=== PATIENT | female | born 1965 | race Caucasian/White ===

== ENCOUNTER 2020-02-27 14:36 | Emergency (ER) | payer MEDICARE ==
[~2020-02-27] VITALS: Ht 182.9 cm; Wt 88.9 kg
[~2020-02-27 14:36] MED LIST: AMARYL4 MG PO; ASPIRIN81 M2 PO; BENTYL10 MG PO; JANUVIA100 MG PO; MACROBID 100 M100 MG PO; METOPROLOL TART25 MG PO; VITAMIN D PO; Z.0.ALLOPURINOL300 M PO; Z.0.LISINOPRIL5 MG PO; Z.0.PREMARIN0.625 MG PO; Z.0.VICODIN HP TAB1 PO; ZOFRAN ODT4 MG SL
--- OUTSIDE RECORDS SUMMARY | 2020-02-27 14:40 | XMS REPORT | Continuity of Care Document ---
Author Author [facility] t Organization [facility] Address [address] [place] [address] Phone Unavailable Care Team Providers Care Cloth Drier Name Role Phone Unavailable Unavailable Payers Payer Name Policy Type Policy Number Effective Date Expiration Date S ource Problems This patient has no known problems. Allergies, Adverse Reactions, Alerts Allergy Name Allergy Type Status Severity Reaction(s) Onset Date Inacti ve Date Treating Clinician Comments Source meperidine HCl DA Active SV 2014-12-12 00:00:00 [facility] Cephalexin Monohydrate DA Active MO 2014-12-12 00:00:00 [facility] Coconut DA Active [place] 2014-12-12 00:00:00 [facility] Shellfish DA Active SV 2014-12-12 00:00:00 [facility] iodine DA Active SV 2014-12-12 00:00:00 [facility] tomato DA Active [place] 2014-12-12 00:00:00 [facility] tomato FA Active OK 2014-12-12 00:00:00 [facility] JULIO PEPPER DA Active OK 2010-11-20 00:00:00 [facility] CUCUMBER DA Active OK 2010-11-20 00:00:00 [facility] Medications This patient has no known medications. Procedures This patient has no known procedures. Results Test Description Test Time Test Comments Results Result Comments Source BREAST,BIOPSY 2020-01-10 18:15:00 RUN DATE: 01/10/20 [place] [facility] PAGE 1 RUN TIME: 1814 Specimen Inquiry RUN USER: INTERFACE PATIENT: ROLY DANIELLE LOC: [facility] U #: [id number] AGE/SX: 54/F ROOM: RE01/07/20REG DR: Mau Mcintosh MD : 65 BED: DIS: STATUS: REG REF TLOC: SPEC #: [id number] RECD: 01/08/20 STATUS: JONAH CASTILLO #: [id number] DONNIE: 01/07/20- SUBM DR: Mau Mcintosh MD ENTERED: 01/08/20 SP TYPE: BX BREAST OTHR DR: ORDERED: GROSS PROCEDURES: GROSS (01/10/20-1456) TISSUES: AXILLA, NOS - RIGHT AXILLARY MASS CLINICAL HISTORY COLLECTION DATE: 01/07/20 LARGE AXILLARY MASS, RIGHT AXILLA COMMENT Levels of the biopsy specimen show scattered lymphoid aggregates in tissue that is almost entirely necrotic. A small aggregate of more viable appearing cells is identified that raises the possibility of being a focus of tumor. Paraffin embedded tissue was submitted to [facility] for immunoperoxidase stains in an effort to identify tumor in the background necrosis. The slides are reviewed at [facility]. The controls stain appropriately. The CD45 (leukocyte common antigen) stain highlights the background of lymphocytes. Due to the patient's previous diagnosis of melanoma, markers for melanoma were performed (S100 and melan A (MART1). No reactivity for either of these stains is present. The stain for brenner-cytokeratin to exclude an epithelial neoplasm is also negative. The specimen is considered to be suboptimal due to the extensive necrosis present. Consider re-biopsy or excision of the lesion to obtain adequate tissue for diagnosis. Intradepartmental consultation: FA. The findings were discussed with Dr. Mcintosh 01/10/2020 at 3:00 PM. FINAL DIAGNOSIS Right axillary mass, core needle biopsy: NECROTIC TISSUE WITH SCATTERED LYMPHOID AGGREGATES, see comment RRB/leilani D [id number], [id number], [id number] CONTINUED ON NEXT PAGE RUN DATE: 01/10/20 [place] [facility] PAGE 2 RUN TIME: 1814 Specimen Inquiry RUN USER: INTERFACE SPEC #: [id number] PATIENT: ROLY DANIELLE #[id number] (Continued) MACROSCOPIC The specimen is received in formalin, labeled with the patient's name, date of and identified as "core needle bx". The specimen consists of multiple core biopsy fragments of pale ivan tissue with an aggregate length of 2.0 cm in diameters of up to 0.15 cm. The tissue is entirely submitted for histologic evaluation in a single cassette. GROSS PERFORMED AT [facility] [address] [place] [address] [phone])[phone] MICROSCOPIC All of the stains, including any controls performed, stain appropriately. MICROSCOPIC PERFORMED AT [facility] [address] [place] [address] [phone])[phone] PERFORMING SITE Diagnosis performed at: [facility], [address] [address] Signed SIGNATURE ON FILE Margarito Kaiser MD 01/10/20 1815 END OF REPORT - PET/CT TUMOR SK MIDTH 2019-01-28 13:59:00 FAX: Azar Brown MD [phone] [place]: St: [facility] FAX: Hakan Santos MD [phone] [facility] 1965 Age/S: 53/F [address] Unit #: [id number] Loc: [place] [address] Phys: Azar Jerome MD Acct: [id number] Dis Date: Status: REG CLI PHONE #: [phone] Exam Date: 01/28/2019929 FAX #: [phone] Reason: MELANOMA EXAMS: CPT CODE: [id number] PET/CT TUMOR SK MIDTH 14795 HISTORY: Staging malignant melanoma. COMPARISON: None available. PET/CT SCAN: 11.7 mCi of FDG administered. Images obtained from the skull base to the feet 1 hour postinjection. Blood glucose level = 192 mg/dL. HEAD AND NECK: Intense uptake within the brain parenchyma limits evaluation. Physiologic pharyngeal uptake. CHEST: No lung parenchymal uptake. No chest wall or breast uptake. No pathologic hilar, mediastinal or axillary adenopathy or uptake. ABDOMEN: No abnormal liver or splenic uptake. No pancreatic or adrenal or renal uptake. Excretion from both kidneys. No pathologic mesenteric, retroperitoneal or retrocrural adenopathy or uptake. Mild excretion into the bowel. PELVIS: Excretion into the urinary bladder distended normally into the bowel as well. No pelvic pathologic adenopathy or uptake. MUSCULOSKELETAL: No abnormal uptake to suggest metastases. LEGS: No abnormal uptake. IMPRESSION: No evidence of metastatic disease. at 1359 Reported and signed by: Shahab Littlejohn M.D. CC: Azar Jerome M.D.; Hakan Chavez MD Technologist: Rony Ramon [facility] Trnscrd Date/Time/By: 01/28/2019 (5049) : By: [email or web address] Orig Print D/T: S: 01/28/2019 (0861) PAGE 1 Signed Report
--- NOTE | 2020-02-27 16:42 | Emergency Department Note ---
History of Present Illnes History of Present Illness Chief Complaint: General Medicine Complaints History of Present Illness This is a 54 year old female PATIENT IN FROM HOME WITH COMPLAINTS OF HITTING HER RIGHT ELBOW AGAINST THE DOORKNOB AND CAUSING IT TO BLEED; PATIENT DENIES PAIN. 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 Any updates have been documented here. Past Medical History Recent Fever: No Clinical Suspicion of Infectio: No New/Unexplained Change in Ment: No Past Medical History: Diabetes Other Medical History: BLIND GOUT MELANOMA Other Surgery: LEFT KNEE L HIP REPLACEMENT BACK L ARM Social History Smoking Cessation: Never Smoker Counseling Performed: No Alcohol Use: None Any Illegal Drug Use: No TB Exposure/Symptoms: No Physically hurt or threatened: No Other Last Tetanus: UTD Any Pre-Existing Lines (PICC,: No Is patient up to date on immun: Yes Last Flu: OOD Last Pneumovax: NA Review of Systems Review of Systems Constitutional: Reports no symptoms EENTM: Reports no symptoms Cardiovascular: Reports no symptoms Respiratory: Reports no symptoms Gastrointestinal: Reports no symptoms Genitourinary: Reports no symptoms Musculoskeletal: Reports other (bleeding from right elbow) Integumentary: Reports no symptoms Neurological: Reports no symptoms Psychological: Reports no symptoms Endocrine: Reports no symptoms Hematological/Lymphatic: Reports no symptoms Physical Exam Related Data Allergies: Coded Allergies: tomato (Verified Allergy, Intermediate, rash, 10/09/13) Cephalexin Monohydrate (Verified Allergy, Mild, RASH, 05/28/12) meperidine HCl (Verified Allergy, Mild, MOUTH/TONGUE NUMBNESS, 05/28/12) iodine (Verified Allergy, Unknown, 04/09/19) pioglitazone (Verified Allergy, Unknown, 04/09/19) shellfish derived (Unverified Allergy, Unknown, 08/05/16) Uncoded Allergies: coconut (Allergy, Intermediate, Rash, 10/09/13) cucumber (Allergy, Intermediate, Rash, 10/09/13) JULIO PEPPERS (Allergy, Unknown, 08/05/16) Triage Vital Signs Vital Signs Date Time Temp Pulse Resp B/P (MAP) Pulse Ox O2 Delivery O2 Flow Rate FiO2 02/27/20 14:46 99.1 105 18 134/83 97 Physical Exam CONSTITUTIONAL Constitutional: Reports well-developed, Reports well-nourished HENT HENT: Reports normocephalic, Reports atraumatic, Reports oropharynx c lear/moist, Reports nose normal HENT L/R: Reports left ext ear normal, Reports right ext ear normal EYES Eyes: Reports PERRL, Reports conjunctivae normal NECK Neck: Reports ROM normal PULMONARY Pulmonary: Reports effort normal, Reports breath sounds normal CARDIOVASCULAR Cardiovascular: Reports regular rhythm, Reports heart sounds normal, Reports capillary refill normal, Reports normal rate GASTROINTESTINAL Abdominal: Reports soft, Reports nontender, Reports bowel sounds normal GENITOURINARY Genitourinary: Reports exam deferred SKIN Skin: Reports other (spongy mass on right elbow with incr vascularity, no active bleeding) MUSCULOSKELETAL Musculoskeletal: Reports other (large right axillary mass, mildly tender) NEUROLOGICAL Neurological: Reports alert, Reports oriented x 3, Reports no gross motor or sensory deficits PSYCHOLOGICAL Psychological: Reports mood/affect normal, Reports judgement normal Assessment & Plan Medical Decision Making MDM no labs needed, no active bleeding - right elbow dressing applied with firm wrap Reassessment Reassessment dc home, f/u with her senior administrative support tomorrow Assessment & Plan Final Impression: (1) Melanoma Depart Disposition: HOME, SELF-CARE Last Vital Signs Date Time Temp Pulse Resp B/P (MAP) Pulse Ox O2 Delivery O2 Flow Rate FiO2 02/27/20 14:46 99.1 105 18 134/83 97 Home Meds Reported Medications Glimepiride (AMARYL) 4 Mg Tablet, 4 MG PO BID 10/08/13 Lisinopril (Lisinopril) 5 Mg Tablet, 5 MG PO DAILY 05/31/12 Allopurinol (Allopurinol) 300 Mg Tablet, 300 MG PO DAILY 05/31/12 Estrogens,Conjugated (Premarin) 0.625 Mg Tablet, 0.625 MG PO DAILY 05/31/12 SUSAN RIVERA MD Feb 27, 2020 16:42
[2020-02-28] MEDS ORDERED: PREMARIN0.3 MG PO (02:26)
== END 2020-02-27 15:40 | disposition home or self-care (01) ==
LOC: ER 14:36
DX: S50.01XA Contusion of right elbow, initial encounter (principal); W22.09XA Striking against other stationary object, initial encounter; Y92.008 Other place in unspecified non-institutional (private) residence as the place of occurrence of the external cause; C43.61 Malignant melanoma of right upper limb, including shoulder; E11.9 Type 2 diabetes mellitus without complications; Z96.642 Presence of left artificial hip joint
CPT/HCPCS: 99282

== ENCOUNTER 2020-02-27 20:04 | Inpatient (IN) | payer MEDICARE ==
[~2020-02-27] VITALS: Ht 182.9 cm; Wt 88.5 kg
--- OUTSIDE RECORDS SUMMARY | 2020-02-27 20:09 | XMS REPORT | Continuity of Care Document ---
Author Author [facility] t Organization [facility] Address [address] [place] [address] Phone Unavailable Care Team Providers Care Billet Examiner Name Role Phone MD ESVIN RAYNESFORD PCP Payers Payer Name Policy Type Policy Number Effective Date Expiration Date Danii Cason [facility] [id number] 2019 00:00:00 [facility] Problems Condition Name Condition Details Condition Category Status Onset Date Resolution Date Last Treatment Date Treating Clinician Comments Source Weakness Problem Active [facility] Uncontrolled diabetes mellitus Problem Active [facility] Morbid obesity Problem Active [facility] Renal failure Problem Active [facility] Hyperkalemia Problem Active [facility] Pancreatitis Problem Active [facility] Malignant melanoma Problem Active [facility] Allergies, Adverse Reactions, Alerts Allergy Name Allergy Type Status Severity Reaction(s) Onset Date Inacti ve Date Treating Clinician Comments Source Iodine Allergy to substance Active 2019-04-09 00:00:00 [facility] Pioglitazone Allergy to substance Active 2019-04-09 00:00:0 0 [facility] shellfish derived Allergy to substance Active 2016-08-05 00 :00:00 [facility] JULIO PEPPERS Allergy to substance Active 2016-08-05 00:00:0 0 [facility] meperidine HCl DA Active SV 2014-12-12 00:00:00 [facility] Cephalexin Monohydrate DA Active MO 2014-12-12 00:00:00 [facility] Coconut DA Active AL 2014-12-12 00:00:00 [facility] Shellfish DA Active SV 2014-12-12 00:00:00 [facility] iodine DA Active SV 2014-12-12 00:00:00 [facility] tomato DA Active AL 2014-12-12 00:00:00 [facility] tomato FA Active AL 2014-12-12 00:00:00 [facility] Tomato Allergy to substance Active Moderate rash 2013-10-09 00:00:00 [facility] coconut Allergy to substance Active Moderate Rash 2013-10-09 00:00:00 [facility] cucumber Allergy to substance Active Moderate Rash 2013-10-09 00:00:00 [facility] meperidine HCl Allergy to substance Active Mild MOUTH/TONGU E NUMBNESS 2012-05-28 00:00:00 [facility] Cephalexin Monohydrate Allergy to substance Active Mild MARIA GUADALUPE H 2012-05-28 00:00:00 [facility] JULIO PEPPER DA Active AL 2010-11-20 00:00:00 [facility] CUCUMBER DA Active AL 2010-11-20 00:00:00 [facility] Social History Social Habit Start Date Stop Date Quantity Comments Source Sex Assigned At 1965 00:00:00 1965 00:00:00 Female [facility] Medications Ordered Medication Name Filled Medication Name Start Date Stop Da te Current Medication? Ordering Clinician Indication Dosage Frequency Signature (SIG) Comments Components Source Allopurinol Allopurinol Yes 300 Daily [facility] Estrogens,Conjugated (Premarin) 0.625 Mg TABLET Estrog ens,Conjugated (Premarin) 0.625 Mg TABLET Yes .625 Daily [facility] Glimepiride (Amaryl) 4 Mg TABLET Glimepiride (Amaryl) 4 Mg TABLET Yes 4 Twice A Day [facility] Lisinopril Lisinopril Yes 5 Daily [facility] Metoprolol Tartrate Metoprolol Tartrate 2019-04-09 00:00:00 No 12.5 Daily [facility] Nitrofurantoin Monohyd/M-Cryst (Macrobid 100 Mg Capsul e) 100 Mg CAPSULE Nitrofurantoin Monohyd/M-Cryst (Macrobid 100 Mg Capsule) 100 Mg CAPSULE 2019-04-09 00:00:00 No 100 Q.mwf [facility] Sitagliptin Phosphate (Januvia) 100 Mg TABLET Sitaglip tin Phosphate (Januvia) 100 Mg TABLET 2019-04-09 00:00:00 No 100 Daily [facility] Dicyclomine Hcl (Bentyl) 10 Mg CAPSULE Dicyclomine Hcl (Bentyl) 10 Mg CAPSULE 2016-08-07 00:00:00 No 20 Every 6 Hours as nee ded for Abdominal Pain [facility] Ondansetron (Zofran Odt) 4 Mg TAB.RAPDIS Ondansetron ( Zofran Odt) 4 Mg TAB.RAPDIS 2016-08-07 00:00:00 No 4 E very 6 Hours as needed for Nausea [facility] Aspirin Aspirin 2015-05-06 00:00:00 No 81 Daily [facility] Vitamin D Vitamin D 2015-05-06 00:00:00 No 650 Daily [facility] Hydrocodone Bit/Acetaminophen (Vicodin Hp Tablet) 1 Ea ch TABLET Hydrocodone Bit/Acetaminophen (Vicodin Hp Tablet) 1 Each TABLET 2014-10-26 00:0 0:00 No 1 as needed [facility] Vital Signs Vital Name Observation Time Observation Value Comments Source Weight 2020-02-27 14:46:00 196 [lb_av] [facility] BMI (Body Mass Index) 2020-02-27 14:46:00 26.6 kg/m2 [facility] Procedures This patient has no known procedures. Plan of Care Planned Activity Planned Date Details Comments Source Instructions Wound Care (General) [facility] Encounters Start Date/Time End Date/Time Encounter Type Admission Type [facility] Care Department Encounter ID Source 2020-02-27 14:36:00 2020-02-27 14:36:00 Registered Emergency Room [facility] [id number] [facility] Results Test Description Test Time Test Comments Results Result Comments Source BREAST,BIOPSY 2020-01-10 18:15:00 RUN DATE: 01/10/20 [facility] PAGE 1 RUN TIME: 5 Specimen Inquiry RUN USER: INTERFACE PATIENT: ROLY DANIELLE LOC: [place] U #: [id number] AGE/SX: 54/F ROOM: RE01/07/20REG DR: Mau Mcintosh MD : 65 BED: DIS: STATUS: REG REF TLOC: SPEC #: [id number] RECD: 01/08/20 STATUS: JONAH CASTILLO #: [id number] DONNIE: 01/07/20- SUBM DR: Mau Mcintosh MD ENTERED: 01/08/20 SP TYPE: BX BREAST OTHR DR: ORDERED: GROSS PROCEDURES: GROSS (01/10/20-1455) TISSUES: AXILLA, NOS - RIGHT AXILLARY MASS CLINICAL HISTORY COLLECTION DATE: 01/07/20 LARGE AXILLARY MASS, RIGHT AXILLA COMMENT Levels of the biopsy specimen show scattered lymphoid aggregates in tissue that is almost entirely necrotic. A small aggregate of more viable appearing cells is identified that raises the possibility of being a focus of tumor. Paraffin embedded tissue was submitted to [facility] for immunoperoxidase stains in an effort to identify tumor in the background necrosis. The slides are reviewed at [facility]. The controls stain appropriately. The CD45 (leukocyte [...] SCATTERED LYMPHOID AGGREGATES, see comment RRB/leilani D [id number], [id number], [id number] CONTINUED ON NEXT PAGE RUN DATE: 01/10/20 [facility] PAGE 2 RUN TIME: 1814 Specimen Inquiry RUN USER: INTERFACE SPEC #: [id number] PATIENT: ROLY DANIELLE #[id number] (Continued) MACROSCOPIC The specimen is received in formalin, labeled with the patient's name, date of and identified as "core needle bx". The specimen consists of multiple core biopsy fragments of pale ivan tissue with an aggregate length of 2.0 cm in diameters of up to 0.15 cm. The tissue is entirely submitted for histologic evaluation in a single cassette. GROSS PERFORMED AT [facility] [address] [place] [address] [phone] MICROSCOPIC All of the stains, including any controls performed, stain appropriately. MICROSCOPIC PERFORMED AT [facility] [address] [place] [address] [phone] PERFORMING SITE Diagnosis performed at: [facility], [place] [address] [id number] Signed SIGNATURE ON FILE Margarito Kaiser MD 01/10/20 1815 END OF REPORT - PET/CT TUMOR SK BS MIDTH 2019-01-28 13:59:00 FAX: Azar Brown MD [phone] [place]: St: [facility] FAX: Hakan Santos MD [phone] Name: ROLY DANIELLE [facility] : 1965 Age/S: 53/F [address] [facility] Unit #: [id number] Loc: [place] [address] Phys: Azar Jerome MD Acct: [id number] Dis Date: Status: REG CL PHONE #: [phone] Exam Date: 01/28/2019 09 FAX #: [phone] Reason: MELANOMA EXAMS: CPT CODE: [id number] PET/CT TUMOR SK MIDTH 32406 HISTORY: Staging malignant melanoma. COMPARISON: None available. PET/CT SCAN: 11.7 mCi of FDG administered. Images obtained from the skull base to the feet 1 hour postinjection. Blood glucose level = 192 mg/dL. HEAD AND NECK: Intense uptake within the brain pare nchyma limits evaluation. Physiologic pharyngeal uptake. CHEST: No [...] IMPRESSION: No evidence of metastatic disease. at 3958 Reported and signed by: Shahab Littlejohn M.D. CC: Azar Jerome M.D.; Hakan Chavez MD Technologist: Rony Ramon Trnscrd Date/Time/By: 01/28/2019 (8624) : By: [email or web address] Orig Print D/T: S: 01/28/2019 (6738) PAGE 1 Signed Report
[2020-02-27] MEDS ORDERED: LEVOFLOXACIN 500MG/D5W 100ML 100 ML IV ONE (21:30)
--- NOTE | 2020-02-27 21:33 | Emergency Department Note ---
History of Present Illnes History of Present Illness Chief Complaint: Laceration History of Present Illness This is a 54 year old female presents by way of EMS complaining of ble eding from right elbow. The patient reports she hit her elbow on a door this morning and began to bleed. Patient was seen in this ER earlier today for same. At time of evaluation today by another ER physician it was not bleeding it was wrapped up and patient was discharged home. States it began bleeding and after going home. Patient reports the site this bleeding is where she had a melanoma removed approximately a year ago. . 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 Any updates have been documented here. Past Medical History Recent Fever: No Clinical Suspicion of Infectio: No New/Unexplained Change in Ment: No Past Medical History: Diabetes, Cancer Other Medical History: BLIND GOUT MELANOMA Other Surgery: LEFT KNEE L HIP REPLACEMENT BACK L ARM RT ARM MELANOMA REMOVAL 2018 Social History Smoking Cessation: Never Smoker Alcohol Use: Social Family History Family history of heart diseas: No Other family history htn,dm Other Last Tetanus: UTD Review of Systems Review of Systems Constitutional: Reports no symptoms EENTM: Reports no symptoms Cardiovascular: Reports no symptoms Respiratory: Reports no symptoms Gastrointestinal: Reports no symptoms Genitourinary: Reports no symptoms Musculoskeletal: Reports as per HPI Integumentary: Reports no symptoms Neurological: Reports no symptoms Psychological: Reports no symptoms Endocrine: Reports no symptoms Hematological/Lymphatic: Reports no symptoms Physical Exam Related Data Allergies: Coded Allergies: tomato (Verified Allergy, Intermediate, rash, 10/09/13) Cephalexin Monohydrate (Verified Allergy, Mild, RASH, 05/28/12) meperidine HCl (Verified Allergy, Mild, MOUTH/TONGUE NUMBNESS, 05/28/12) iodine (Verified Allergy, Unknown, 04/09/19) pioglitazone (Verified Allergy, Unknown, 04/09/19) shellfish derived (Unverified Allergy, Unknown, 08/05/16) Uncoded Allergies: coconut (Allergy, Intermediate, Rash, 10/09/13) cucumber (Allergy, Intermediate, Rash, 10/09/13) JULIO PEPPERS (Allergy, Unknown, 08/05/16) Triage Vital Signs Vital Signs Date Time Temp Pulse Resp B/P (MAP) Pulse Ox O2 Delivery O2 Flow Rate FiO2 02/27/20 20:54 99.7 113 20 154/102 97 Vital signs reviewed: Yes Physical Exam CONSTITUTIONAL Constitutional: Reports well-developed, Reports well-nourished HENT HENT: Reports normocephalic, Reports atraumatic, Reports oropharynx clear/moist, Reports nose normal HENT L/R: Reports left ext ear normal, Reports right ext ear normal EYES Eyes: Reports PERRL, Reports conjunctivae normal NECK Neck: Reports ROM normal PULMONARY Pulmonary: Reports effort normal, Reports breath sounds normal CARDIOVASCULAR Cardiovascular: Reports regular rhythm, Reports heart sounds normal, Reports capillary refill normal, Reports tachycardia (rate 106) GASTROINTESTINAL Abdominal: Reports soft, Reports nontender, Reports bowel sounds normal GENITOURINARY Genitourinary: Reports exam deferred SKIN Skin: Reports warm, Reports dry, Reports other (swollen area right lateral aspect of elbow with minimal bleeding) MUSCULOSKELETAL Musculoskeletal: Reports ROM normal NEUROLOGICAL Neurological: Reports alert, Reports oriented x 3, Reports no gross motor or sensory deficits PSYCHOLOGICAL Psychological: Reports mood/affect normal, Reports judgement normal Exam - additional comments on further exam of area that is bleeding on right elbow when i went to express what appeared to be a hematoma purulent material drained from site, no erythema note to skin in same area, pt states this is where the melanoma was removed from her arm 1 year ago Results Laboratory Laboratory Laboratory Tests Test 02/27/20 22:57 02/27/20 21:03 White Blood Count 15.61 x10e3/uL (4.8-10.8) Red Blood Count 4.58 x10e6/uL (3.6-5.1) Hemoglobin 12.7 g/dL (12.0-16.0) Hematocrit 39.8 % (34.2-44.1) Mean Corpuscular Volume 86.9 fL (81-99) Mean Corpuscular Hemoglobin 27.7 pg (28-32) Mean Corpuscular Hemoglobin Concent 31.9 g/dL (31-35) Red Cell Distribution Width 14.1 % (11.7-14.4) Platelet Count 363 x10e3/uL (140-360) Neutrophils (%) (Auto) 85.9 % (38.7-80.0) Lymphocytes (%) (Auto) 9.3 % (18.0-39.1) Monocytes (%) (Auto) 3.2 % (4.4-11.3) Eosinophils (%) (Auto) 0.3 % (0.0-6.0) Basophils (%) (Auto) 0.4 % (0.0-1.0) Neutrophils # (Auto) 13.4 (2.1-6.9) Lymphocytes # (Auto) 1.5 (1.0-3.2) Monocytes # (Auto) 0.5 (0.2-0.8) Eosinophils # (Auto) 0.1 (0.0-0.4) Basophils # (Auto) 0.1 (0.0-0.1) Absolute Immature Granulocyte (auto 0.14 x10e3/uL (0-0.1) Sodium Level 134 mmol/L (136-145) Potassium Level 5.7 mmol/L (3.5-5.1) Chloride Level 102 mmol/L (98-107) Carbon Dioxide Level 19 mmol/L (22-29) Anion Gap 18.7 mmol/L (8-16) Blood Urea Nitrogen 39 mg/dL (7-26) Creatinine 2.66 mg/dL (0.57-1.11) Estimat Glomerular Filtration Rate 19 ML/MIN (60-) BUN/Creatinine Ratio 15 (6-25) Glucose Level 325 mg/dL (74-118) Calcium Level 10.6 mg/dL (8.4-10.2) Total Bilirubin 0.4 mg/dL (0.2-1.2) Aspartate Amino Transf (AST/SGOT) 14 IU/L (5-34) Alanine Aminotransferase (ALT/SGPT) 10 IU/L (0-55) Alkaline Phosphatase 110 IU/L (40-150) Total Protein 7.3 g/dL (6.5-8.1) Albumin 3.2 g/dL (3.5-5.0) Globulin 4.1 g/dL (2.3-3.5) Albumin/Globulin Ratio 0.8 (0.8-2.0) Bedside Glucose 268 mg/dL (70-120) Laboratory Tests Test 02/27/20 21:03 Bedside Glucose 268 mg/dL (70-120) Lab results reviewed: Yes Laboratory comments PT WITH HYPERKALEMIA, Procedures 12 Lead ECG Interpretation ECG Interpretation : ECG: ECG 1 Date: Feb 28, 2020 Time: 23:56 Rhythm: sinus rhythm Rate: normal BPM: 95 QRS axis: normal ST segments normal: Yes T waves normal: No T wave inversion: V5, V6 Other findings: no other findings Clinical Impression: abnormal ECG Assessment & Plan Medical Decision Making MDM pt with swollen area to right elbow with purulent drainage and this is at site of previous melanoma removal, i spoke with dr bond pt's pcp, will place pt in obs, get ct of elbow, start pt on levaquin and vancomycin. cbc, cmp, blood cultures ordered. 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 I SPOKE WITH DR MG . Assessment & Plan Final Impression: (1) Abscess of right elbow (2) Hyperkalemia (3) Renal insufficiency Depart Disposition: ADMITTED Last Vital Signs Date Time Temp Pulse Resp B/P (MAP) Pulse Ox O2 Delivery O2 Flow Rate FiO2 02/27/20 20:54 99.7 113 20 154/102 97 Home Meds Reported Medications Glimepiride (AMARYL) 4 Mg Tablet, 4 MG PO BID 10/08/13 Lisinopril (Lisinopril) 5 Mg Tablet, 5 MG PO DAILY 05/31/12 Allopurinol (Allopurinol) 300 Mg Tablet, 300 MG PO DAILY 05/31/12 Estrogens,Conjugated (Premarin) 0.625 Mg Tablet, 0.625 MG PO DAILY 05/31/12 Medications in the ED Levofloxacin/ Dextrose 100 ml @ 100 mls/hr NOW ONCE IV ; Start 02/27/20 at 21:30; Stop 02/27/20 at 22:29; Status UNV Vancomycin HCl 250 ml @ 200 mls/hr NOW ONCE IV ; Start 02/27/20 at 21:30; Stop 02/27/20 at 22:44; Status UNV PURNIMA HDZ MD Feb 27, 2020 21:33
[2020-02-27] MEDS ORDERED: VANCOMYCIN 1GM/NS 250 ML 250 ML IV ONE (22:00)
[2020-02-27 23:20] LABS: BASOPHILS # (AUTO) 0.1 (0.0-0.1); BASOPHILS % 0.4 % (0.0-1.0); EOSINOPHILS # (AUTO) 0.1 (0.0-0.4); EOSINOPHILS % 0.3 % (0.0-6.0); HEMATOCRIT 39.8 % (34.2-44.1); HEMOGLOBIN 12.7 g/dL (12.0-16.0); LYMPHOCYTES # (AUTO) 1.5 (1.0-3.2); LYMPHOCYTES % 9.3 % (18.0-39.1); MEAN CORPUSCULAR HEMOGLOBIN 27.7 pg (28-32); MEAN CORPUSCULAR HGB CONC 31.9 g/dL (31-35); MEAN CORPUSCULAR VOLUME 86.9 fL (81-99); MONOCYTES # (AUTO) 0.5 (0.2-0.8); MONOCYTES % 3.2 % (4.4-11.3); NEUTROPHILS # (AUTO) 13.4 (2.1-6.9); NEUTROPHILS % 85.9 % (38.7-80.0); PLATELET COUNT 363 x10e3/uL (140-360); RED BLOOD COUNT 4.58 x10e6/uL (3.6-5.1); RED CELL DISTRIBUTION WIDTH 14.1 % (11.7-14.4)
[2020-02-27 23:33] LABS: ALBUMIN 3.2 g/dL (3.5-5.0); ALBUMIN/GLOBULIN RATIO 0.8 (0.8-2.0); ANION GAP 18.7 mmol/L (8-16); CALCIUM 10.6 mg/dL (8.4-10.2); CREATININE, SERUM 2.66 mg/dL (0.57-1.11); POTASSIUM 5.7 mmol/L (3.5-5.1)
--- OUTSIDE RECORDS SUMMARY | 2020-02-27 23:59 | XMS REPORT | Continuity of Care Document ---
Author Author [facility] t Organization [facility] Address [address] [place] [address] Phone Unavailable Care Team Providers Care Patent Lawyer Name Role Phone MD ESVIN LONGWOOD PCP Payers Payer Name Policy Type Policy Number Effective Date Expiration Date Danii Cason [facility] [id number] 2019 00:00:00 [facility] Problems Condition Name Condition Details Condition Category Status Onset Date Resolution Date Last Treatment Date Treating Clinician Comments Source Weakness Problem Active [facility] Uncontrolled diabetes mellitus Problem Active [facility] Morbid obesity Problem Active C [facility] Renal failure Problem Active [facility] I [facility] Hyperkalemia Problem Active [facility] Pancreatitis Problem Active [facility] Malignant melanoma Problem Active [facility] Allergies, Adverse Reactions, Alerts Allergy Name Allergy Type Status Severity Reaction(s) Onset Date Inacti ve Date Treating Clinician Comments Source Iodine Allergy to substance Active 2019-04-09 00:00:00 [facility] Pioglitazone Allergy to substance Active 2019-04-09 00:00:0 0 [facility] shellfish derived Allergy to substance Active 2016-08-05 00 :00:00 [facility] JULIO PEPPERS Allergy to substance Active 2016-08-05 00:00:0 0 [facility] meperidine HCl DA Active [place] 2014-12-12 00:00:00 [facility] Cephalexin Monohydrate DA Active [place] 2014-12-12 00:00:00 [facility] Coconut DA Active [place] 2014-12-12 00:00:00 [facility] Shellfish DA Active [place] 2014-12-12 00:00:00 [facility] iodine DA Active [place] 2014-12-12 00:00:00 [facility] tomato DA Active [place] 2014-12-12 00:00:00 [facility] tomato FA Active [place] 2014-12-12 00:00:00 [facility] Tomato Allergy to substance Active Moderate rash 2013-10-09 00:00:00 [facility] coconut Allergy to substance Active Moderate Rash 2013-10-09 00:00:00 [facility] cucumber Allergy to substance Active Moderate Rash 2013-10-09 00:00:00 [facility] meperidine HCl Allergy to substance Active Mild MOUTH/TONGU E NUMBNESS 2012-05-28 00:00:00 [facility] Cephalexin Monohydrate Allergy to substance Active Mild MARIA GUADALUPE H 2012-05-28 00:00:00 [facility] JULIO PEPPER DA Active [place] 2010-11-20 00:00:00 [facility] CUCUMBER DA Active [place] 2010-11-20 00:00:00 [facility] Social History Social Habit Start Date Stop Date Quantity Comments Source Sex Assigned At 1965 00:00:00 1965 00:00:00 Female [facility] Medications Ordered Medication Name Filled Medication Name Start Date Stop Da te Current Medication? Ordering Clinician Indication Dosage Frequency Signature (SIG) Comments Components Source Allopurinol Allopurinol Yes 300 Daily [facility] Estrogens,Conjugated (Premarin) 0.625 Mg TABLET Estrog ens,Conjugated (Premarin) 0.625 Mg TABLET Yes .625 Daily [facility] Glimepiride (Amaryl) 4 Mg TABLET Glimepiride (Amaryl) 4 Mg TABLET Yes 4 Twice A Day [facility] Lisinopril Lisinopril Yes 5 Daily [facility] I [facility] Metoprolol Tartrate Metoprolol Tartrate 2019-04-09 00:00:00 No 12.5 Daily [facility] Nitrofurantoin Monohyd/M-Cryst (Macrobid 100 Mg Capsul e) 100 Mg CAPSULE Nitrofurantoin Monohyd/M-Cryst (Macrobid 100 Mg Capsule) 100 Mg CAPSULE 2019-04-09 00:00:00 No 100 Q.mwf [facility] Sitagliptin Phosphate (Januvia) 100 Mg TABLET Sitaglip tin Phosphate (Januvia) 100 Mg TABLET 2019-04-09 00:00:00 No 100 Daily [facility] Dicyclomine Hcl (Bentyl) 10 Mg CAPSULE Dicyclomine Hcl (Bentyl) 10 Mg CAPSULE 2016-08-07 00:00:00 No 20 Every 6 Hours as nee ded for Abdominal Pain [facility] Ondansetron (Zofran Odt) 4 Mg TAB.RAPDIS Ondansetron ( Zofran Odt) 4 Mg TAB.RAPDIS 2016-08-07 00:00:00 No 4 E very 6 Hours as needed for Nausea [facility] Aspirin Aspirin 2015-05-06 00:00:00 No 81 Daily [facility] Vitamin D Vitamin D 2015-05-06 00:00:00 No 650 Daily [facility] Hydrocodone Bit/Acetaminophen (Vicodin Hp Tablet) 1 Ea ch TABLET Hydrocodone Bit/Acetaminophen (Vicodin Hp Tablet) 1 Each TABLET 2014-10-26 00:0 0:00 No 1 as needed [facility] Vital Signs Vital Name Observation Time Observation Value Comments Source Weight 2020-02-27 14:46:00 196 [lb_av] [facility] BMI (Body Mass Index) 2020-02-27 14:46:00 26.6 kg/m2 [facility] Procedures This patient has no known procedures. Plan of Care Planned Activity Planned Date Details Comments Source Instructions Wound Care (General) [facility] Encounters Start Date/Time End Date/Time Encounter Type Admission Type [facility] Care Department Encounter ID Source 2020-02-27 14:36:00 2020-02-27 14:36:00 Registered Emergency Room [facility] [id number] [facility] Results Test Description Test Time Test Comments Results Result Comments Source BREAST,BIOPSY 2020-01-10 18:15:00 RUN DATE: 01/10/20 [facility] PAGE 1 RUN TIME: 5 Specimen Inquiry RUN USER: INTERFACE PATIENT: ROLY DANIELLE LOC: [employer] U #: [id number] AGE/SX: 54/F ROOM: RE01/07/20REG DR: Mau Mcintosh MD : 65 BED: DIS: STATUS: REG REF TLOC: SPEC #: [id number] RECD: 01/08/20 STATUS: JONAH CASTILLO #: [id number] DONNIE: 01/07/20- SUBM DR: Mau Mcintosh MD [...] tumor. Paraffin embedded tissue was submitted to [facility] for immunoperoxidase stains in an effort to identify tumor in the background necrosis. The slides are reviewed at [facility]. The controls stain appropriately. The CD45 [...] SCATTERED LYMPHOID AGGREGATES, see comment RRB/leilani D 89547, 90045, [id number] CONTINUED ON NEXT PAGE RUN DATE: 01/10/20 [facility] PAGE 2 RUN TIME: 1814 Specimen Inquiry RUN USER: INTERFACE SPEC #: [id number] PATIENT: ROLY DANIELLE #[id number] (Continued) MACROSCOPIC The specimen is received in formalin, labeled with the patient's name, date of and identified as "core needle bx". The specimen consists of multiple core biopsy fragments of pale ivan tissue with an aggregate length of 2.0 cm in diameters of up to 0.15 cm. The tissue is entirely submitted for histologic evaluation in a single cassette. GROSS PERFORMED AT [facility] [address] [place] [address] (p)[phone] MICROSCOPIC All of the stains, including any controls performed, stain appropriately. MICROSCOPIC PERFORMED AT [facility] [address] [place] [address] (p)[phone] PERFORMING SITE Diagnosis performed at: [facility], [place] [address] [id number] Signed SIGNATURE ON FILE Margarito Kaiser MD 01/10/20 1815 END OF REPORT - PET/CT TUMOR SK BS MIDTH 2019-01-28 13:59:00 FAX: Azar Brown MD [phone] [place]: St: [facility] FAX: Hakan Santos MD [phone] Name: ROLY DANIELLE KAMALA [facility] : 1965 Age/S: 53/F [address] [facility] Unit #: [id number] Loc: [place] [address] Phys: Azar Jerome MD Acct: [id number] Dis Date: Status: REG CL PHONE #: [phone] Exam Date: 01/28/2019 09 FAX #: [phone] Reason: MELANOMA EXAMS: CPT CODE: [id number] PET/CT TUMOR SK MIDTH [id number] HISTORY: Staging malignant melanoma. COMPARISON: None available. [...] IMPRESSION: No evidence of metastatic disease. at 7132 Reported and signed by: Shahab Littlejohn M.D. CC: Azar Jerome M.D.; Hakan Chavez MD Technologist: Rony Ramon Trnscrd Date/Time/By: 01/28/2019 (1813) : By: [email or web address] Orig Print D/T: S: 01/28/2019 (1650) PAGE 1 Signed Report
[2020-02-28] MEDS ORDERED: ONDANSETRON HCL INJ 2MG/ML 2ML 2 MG/ML VIAL IV PRN
[2020-02-28] MEDS ORDERED: DEXTROSE 50% SYRINGE 50 ML IV STA (00:01)
[2020-02-28] MEDS ORDERED: SODIUM BICARBONATE 8.4% 50 ML VIAL IV STA ×2 (00:01→00:28)
[2020-02-28] MEDS ORDERED: CALCIUM CHLORIDE 10% 1.36 MEQ/ML 10ML SYR IV STA (00:01)
[2020-02-28] MEDS ORDERED: INSULIN REGULAR, HUMAN 100 UNIT/1 ML 3ML VIAL IV ONE (00:15)
[2020-02-28] MEDS ORDERED: CALCIUM GLUCONATE 10% INJ 4.65 MEQ in SODIUM CHLORIDE 0.9% 50ML 50 ML IV ONE (00:15)
[2020-02-28] MEDS ORDERED: SOD POLYSTYRENE SULFONATE SUSP 15 GM/60 ML BTL PO ONE (00:15)
[2020-02-28] MEDS ORDERED: SODIUM CHLORIDE 0.9% 50ML 50 ML ONE (00:29)
[2020-02-28] MEDS ORDERED: CALCIUM GLUCONATE 10% INJ 0.465 MEQ/ML VIAL ONE (00:29)
[2020-02-28] MEDS ORDERED: DEXTROSE 50% SYRINGE 50 ML IV PRN (01:30)
[2020-02-28] MEDS ORDERED: SODIUM BICARBONATE 8.4% SYRING 50 ML ONE (01:32)
--- NOTE | 2020-02-28 02:08 | NUR ---
Patient resting with no distress noted at this time. RR even and unlabored. Call light remains at bedside.
[2020-02-28] MEDS ORDERED: PREMARIN0.3 MG PO (02:26)
--- NOTE | 2020-02-28 04:30 | NUR ---
Patient had 2 bowel movements. Brief applied. Patient in no distress. RR even and unlabored. Will continue to monitor patient.
[2020-02-28 04:49] LABS: BASOPHILS # (AUTO) 0.1 (0.0-0.1); BASOPHILS % 0.6 % (0.0-1.0); EOSINOPHILS # (AUTO) 0.1 (0.0-0.4); EOSINOPHILS % 0.3 % (0.0-6.0); HEMATOCRIT 37.5 % (34.2-44.1); HEMOGLOBIN 12.2 g/dL (12.0-16.0); LYMPHOCYTES # (AUTO) 1.8 (1.0-3.2); LYMPHOCYTES % 11.9 % (18.0-39.1); MEAN CORPUSCULAR HEMOGLOBIN 28.2 pg (28-32); MEAN CORPUSCULAR HGB CONC 32.5 g/dL (31-35); MEAN CORPUSCULAR VOLUME 86.6 fL (81-99); MONOCYTES # (AUTO) 0.7 (0.2-0.8); MONOCYTES % 4.8 % (4.4-11.3); NEUTROPHILS # (AUTO) 12.1 (2.1-6.9); NEUTROPHILS % 81.7 % (38.7-80.0); PLATELET COUNT 366 x10e3/uL (140-360); RED BLOOD COUNT 4.33 x10e6/uL (3.6-5.1)
[2020-02-28 05:05] LABS: ALBUMIN 2.9 g/dL (3.5-5.0); ALBUMIN/GLOBULIN RATIO 0.7 (0.8-2.0); ANION GAP 15.8 mmol/L (8-16); CALCIUM 10.1 mg/dL (8.4-10.2); CREATININE, SERUM 2.63 mg/dL (0.57-1.11); POTASSIUM 4.8 mmol/L (3.5-5.1)
--- NOTE | 2020-02-28 06:22 | History and Physical ---
REASON FOR ADMISSION: Right elbow cellulitis. HISTORY OF PRESENT ILLNESS: The patient is a 54-year-old lady with history of melanoma of the right upper extremity, who presented with surgical scar area from year ago with some increased fluid production and fluctuance and ER doctor was able to express what appeared to be some pussy fluid from the wound, that has been nonhealing, so she has been admitted for further evaluation and treatment. PAST MEDICAL HISTORY: Significant for diabetes, chronic kidney disease stage 4, hypertension, and blindness. Cephalexin, iodine, Actos, and Demerol. SOCIAL HISTORY: She is a nonsmoker and nondrinker. FAMILY HISTORY: Hypertension and diabetes. PHYSICAL EXAMINATION: VITAL SIGNS: Temperature 98.6, pulse 74, blood pressure 156/74, sats are 100% on room air. GENERAL: She is no apparent distress, lying in bed. NECK: Supple. No lymphadenopathy, CARDIOVASCULAR: Regular rate and rhythm. LUNGS: Clear to auscultation bilaterally. Abdomen: Good bowel sounds. Soft, nontender. EXTREMITIES: No clubbing or cyanosis. NEUROLOGIC: Moves all extremities x4. SKIN: Shows she has an open wound to the right elbow area that expresses some serosanguinous fluid , maybe a little bit of pus, no streaking. ASSESSMENT/PLAN: 1. Cellulitis/abscess of the right elbow. We will go and do a CT scan to see if there is any evidence of fluctuance. 2. Continue with antibiotics. She is already received couple of antibiotics within the hospital. 3. Hypokalemia. We will consult her kidney doctor. 4. Chronic kidney disease, stage 4. We will also defer to Renal. 5. Hypertension. We will continue to monitor. 6. Diabetes. We will continue to monitor. Use of sliding scale if necessary. 7. Leukocytosis. We will continue to monitor. Please see hospital chart for full details. MD CARRIE Velasco/EDWIGE /[id number]
--- NOTE | 2020-02-28 07:03 | NUR ---
Report to JAX Mccloud
--- NOTE | 2020-02-28 08:29 | NUR ---
spoke with dr posada regarding pt consult
--- NOTE | 2020-02-28 08:41 | Diagnostic Imaging Report ---
TECHNIQUE: Computed tomography imaging of the RIGHT ELBOW was performed WITHOUT injected contrast. Dose modulation, iterative reconstruction, and/or weight based adjustment of the mA/kV was utilized to reduce the radiation dose to as low as reasonably achievable. HISTORY: Elbow pain, evaluate for abscess. COMPARISON: None available. FINDINGS: No fracture. No lytic or blastic lesion. No osteonecrosis. Degenerative arthrosis of the elbow joint with narrowing and osteophytosis. Ossification along the lateral joint line. In the lateral soft tissues of the elbow a 4.5 x 4 x 2 cm soft tissue mass/complex collection with Hounsfield units ranging from approximately 25-50 Hounsfield unit. Probable subcutaneous ulceration with focus of gas axial image 7. Additional soft tissue edema around the elbow. IMPRESSION: Lateral elbow soft tissue mass/complex fluid collection measuring up to 4.5 cm. Additional soft tissue edema/possible cellulitis of the elbow. Signed by: Dr. Rojas Scott M.D. on 02/28/2020 8:37 AM
[2020-02-28] MEDS: INSULIN REGULAR, HUMAN 100 UNIT/1 ML 3ML VIAL SQ SCH ×4 (08:50→21:08)
--- NOTE | 2020-02-28 09:55 | NUR ---
WENT TO SPEAK WITH ED STAFF ABOUT SOCIAL SERVICE CONSULT. PT SIGHT IMPAIRED AND LIVES ON OWN, BUMPED ELBOW ON DOOR AND IS ON BLOOD THINNERS. PT STATES ABLE TO DO OWN ADL'S AND JUST BUMPED THE DOOR.
--- NOTE | 2020-02-28 10:28 | NUR ---
social media strategist updated on concerns for pt safety and health.
[2020-02-28 13:45] VITALS: BP 162/90
--- NOTE | 2020-02-28 15:00 | NUR ---
pt alert resp even and unlabored at this time no distress noted at this time, pt legally blind, pt able to make needs known, pt oriented to call light, bed rails up x 2, bed in lowest position.
[2020-02-28 16:00] VITALS: BP 173/107
--- NOTE | 2020-02-28 16:00 | NUR ---
dr. Negron here to pt,
--- NOTE | 2020-02-28 16:30 | NUR ---
dr. lilly here to see pt.
[2020-02-28] MEDS: CLINDAMYCIN 600MG / 50ML 50 ML IV SCH (16:48)
[2020-02-28] MEDS: SODIUM CHLORIDE 0.9% 1000ML 1,000 ML IV SCH (16:48)
[2020-02-28 17:03] VITALS: BP 173/107
[2020-02-28 17:19] VITALS: BP 173/107
[2020-02-28] MEDS ORDERED: HYDRALAZINE HCL 20 MG/ML VIAL IV PRN (17:45)
--- NOTE | 2020-02-28 17:45 | NUR ---
pt off unit for C scan
[2020-02-28] MEDS ORDERED: HYDRALAZINE HCL 20 MG/ML VIAL IV ONE (17:58)
--- NOTE | 2020-02-28 18:00 | NUR ---
pt was returned to unit.
--- NOTE | 2020-02-28 18:45 | Diagnostic Imaging Report ---
EXAM: CT Chest WITHOUT contrast 02/28/2020 5:40 PM INDICATION: ^right axillary mass ^[id number] ^[id number] COMPARISON: Chest CT, 02/22/2017, images only. Report is unavailable in PACS. TECHNIQUE: Chest was scanned utilizing a multidetector helical scanner from the lung apex through the level of the adrenal glands without administration of IV contrast. Absence of intravenous contrast decreases sensitivity for detection of lymphadenopathy and vascular pathology. Coronal and sagittal reformations were obtained. Routine protocol was performed. Dose modulation, iterative reconstruction, and/or weight based adjustment of the mA/kV was utilized to reduce the radiation dose to as low as reasonably achievable. IV CONTRAST: None RADIATION DOSE: Total DLP: 532.99 mGy*cm Estimated effective dose: (DLP x 0.014 x size factor) mSv COMPLICATIONS: None FINDINGS: Annotations given as (series/image number). LINES/ TUBES: None. LUNGS AND AIRWAYS: There is a noncalcified 7 mm nodule in the left lower lobe (3/37) and a 7 mm nodule in the right lower lobe (3/45), both appearing stable from previous exam. No new pulmonary air space opacities. Trachea and main bronchi are clear. PLEURA: No pleural effusion or pneumothorax. HEART AND MEDIASTINUM: The thyroid gland is normal. No mediastinal, hilar or axillary lymphadenopathy. The heart is normal in size.. There is no pericardial effusion. There is no dilatation of the thoracic aorta. Ascending aorta measures 3.6 cm, main pulmonary artery 2.6 cm, normal. 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 UPPER ABDOMEN: Included portions of the unenhanced liver, spleen, pancreas, and adrenals and kidneys show no evidence for focal pathology. Cholecystectomy clips are noted. BONES: No acute or suspicious bony lesions. Unchanged appearance of sclerotic lesion in the humeral head. SOFT TISSUES: Superficial surrounding soft tissue shows a rounded soft tissue mass in the right axilla measuring 7.6 x 9.6 x 10.5 cm. This appears homogeneous with internal density of 16 HU. There are adjacent soft tissue masses measuring 1.2 cm (2/14) and 0.8 cm (2/22). IMPRESSION: 1. Small bilateral lower lobe pulmonary nodules are stable since 2017. This lack of change suggests they are benign. No new nodules or pulmonary opacity. 2. There is a new 10.5 cm rounded homogeneous mass in the right axilla. Internal density is slightly above simple fluid, suggesting this may be a cyst or complicated cystic mass. Small adjacent nodules are likely slightly enlarged lymph nodes. Signed by: Dr. Olivier Pérez M.D. on 02/28/2020 6:42 PM
--- NOTE | 2020-02-28 19:17 | NUR ---
walking rounds complete, pt stable at shift change. report given to oncoming nurse.
--- NOTE | 2020-02-28 20:00 | NUR ---
hr 140s-150s, ST, spoke to dr. dumont, new consult dr. fragoso and new medication orders received.
[2020-02-28 20:16] VITALS: BP 152/90
[2020-02-28] MEDS ORDERED: METOPROLOL TARTRATE 25 MG TAB PO ONE (20:20)
--- NOTE | 2020-02-28 20:30 | NUR ---
left message with dr rosales who was conference planning manager for dr. fragoso.
[2020-02-28 21:00] VITALS: BP 150/90
--- NOTE | 2020-02-28 22:01 | Consultation ---
DATE OF CONSULTATION: 02/28/2020 HISTORY OF PRESENT ILLNESS: A 54-year-old female, who is legally blind, underlying history of CKD 3, presented with the possible cellulitis or abscesses of the right elbow. She was found to have a potassium level of 5.7 with a bicarbonate 19, creatinine 2.66, was given urgent treatment for hyperkalemia last night. Today, she is awake, alert, oriented x3, lying supine, in no apparent distress. She has a very tight dressing wrapped around her right elbow, which we opened, found that there was an open suture line, perhaps with some crust around it and dark blood was effusing from it. We re-wrapped the sterile dressing on it. She is otherwise lying supine. Denies fever, chills, chest pain, shortness of breath. LABORATORY DATA: She has labs showing sodium 137, potassium 4.8 improved from 5.7, bicarbonate 23 improved from 19 with a creatinine 2.63. Has a blood sugar of 323 and a calcium level of 10.6. White count shows 14.7 WBC, 12.2 hemoglobin. ALLERGIES: 1. JULIO PEPPER. 2. CEPHALEXIN. 3. CUCUMBERS. 4. IODINE. 5. MEPERIDINE. 6. PIOGLITAZONE. 7. SHELLFISH DERIVED. 8. TOMATOES. CURRENT MEDICATIONS: 1. She has received one dose of Levaquin. 2. She received one dose of vancomycin. 3. She is on insulin sliding scale. 4. She is on sodium. PAST MEDICAL HISTORY: History of melanoma status post excision, follows with Dr. Jerome. Recently had a PET scan. History of diabetes, hypertension. She is legally blind, has psoriasis as well as RK as well as slight nystagmus which she is aware of. SOCIAL HISTORY: Lives by herself, fairly independent. Does her own cooking. Gets a medicine delivered and they are marked in a way that she can read it and it should be delivered at groceries. She does not have any kids, has some cousins. PHYSICAL EXAMINATION: GENERAL: Awake, alert, oriented x3, lying supine, in no apparent distress. VITAL SIGNS: Blood pressure 162/90, pulse rate 97, afebrile. HEAD AND NECK: Cornea clear. Oral mucosa moist. NECK: Veins are flat. LUNGS: Relatively clear. HEART: S1 and S2 audible. ABDOMEN: Soft, nontender. No apparent visceromegaly. EXTREMITIES: Lower extremity examination shows no edema. The patient has cirrhotic rash over the scalp and forehead area. IMPRESSION AND PLAN: Hyperkalemia, [id number] kidney failure, underlying diabetic nephropathy, chronic kidney disease stage 3, hypercalcemia. Plan on obtaining an intact PTH level, must rule out hypercalcemia malignancy versus primary hyperparathyroidism. In the meantime, we will start IV normal saline resuscitate volume, given the acute on chronic kidney failure plus hypercalcemia. I will obtain a surgical consult, Dr. Jerome's consult as well as start clindamycin. Further recommendations to follow. MD JOLLY Soares/EDWIGE /[id number]
[2020-02-29] VITALS (8 sets, daily range): BP systolic 129–144; BP diastolic 67–86
[2020-02-29] MEDS: SODIUM CHLORIDE 0.9% 1000ML 1,000 ML IV SCH ×2 (02:00→11:00)
[2020-02-29] MEDS: CLINDAMYCIN 600MG / 50ML 50 ML IV SCH ×5 (05:46→23:54)
[2020-02-29 06:22] LABS: BASOPHILS # (AUTO) 0.1 (0.0-0.1); BASOPHILS % 0.4 % (0.0-1.0); EOSINOPHILS # (AUTO) 0.1 (0.0-0.4); EOSINOPHILS % 1.1 % (0.0-6.0); HEMATOCRIT 35.1 % (34.2-44.1); HEMOGLOBIN 11.2 g/dL (12.0-16.0); LYMPHOCYTES # (AUTO) 1.6 (1.0-3.2); LYMPHOCYTES % 13.5 % (18.0-39.1); MEAN CORPUSCULAR HEMOGLOBIN 27.7 pg (28-32); MEAN CORPUSCULAR HGB CONC 31.9 g/dL (31-35); MEAN CORPUSCULAR VOLUME 86.9 fL (81-99); MONOCYTES # (AUTO) 0.7 (0.2-0.8); MONOCYTES % 5.5 % (4.4-11.3); NEUTROPHILS # (AUTO) 9.3 (2.1-6.9); NEUTROPHILS % 78.9 % (38.7-80.0); PLATELET COUNT 304 x10e3/uL (140-360); RED BLOOD COUNT 4.04 x10e6/uL (3.6-5.1); RED CELL DISTRIBUTION WIDTH 14.1 % (11.7-14.4)
[2020-02-29 06:47] LABS: INR 0.96; PROTHROMBIN TIME 13.3 seconds (11.9-14.5)
[2020-02-29 06:48] LABS: PARTIAL THROMBOPLASTIN TIME 28.9 seconds (23.8-35.5)
[2020-02-29 06:56] LABS: ALBUMIN 2.7 g/dL (3.5-5.0); ALBUMIN/GLOBULIN RATIO 0.8 (0.8-2.0); ANION GAP 15.6 mmol/L (8-16); CALCIUM 9.3 mg/dL (8.4-10.2); CREATININE, SERUM 2.31 mg/dL (0.57-1.11); POTASSIUM 4.6 mmol/L (3.5-5.1)
--- NOTE | 2020-02-29 07:00 | NUR ---
RECEIVED PATIENT RESTING IN BED NO S/S OF DISTRESS. BED LOW, WHEELS LOCKED, SIDE RAILS X2. CALL LIGHT IN REACH WILL CONTINUE TO MONITOR PATIENT.
[2020-02-29] MEDS: INSULIN REGULAR, HUMAN 100 UNIT/1 ML 3ML VIAL SQ SCH ×4 (07:30→21:00)
--- NOTE | 2020-02-29 08:09 | NUR ---
Discussed pt status with Dr. Chavez. Received order for inpatient status.
[2020-02-29] MEDS: METOPROLOL TARTRATE 25 MG TAB PO SCH ×2 (08:22→16:31)
--- NOTE | 2020-02-29 08:22 | Consultation ---
DATE OF CONSULTATION: 02/28/2020 HISTORY OF PRESENT ILLNESS: The patient is a 54-year-old female, known to me. She has history of melanoma in the right arm, previous excision and then with poor followup. She was seen by me in the office where she noted to have a large mass in the right axilla. A biopsy was done, which was nondiagnostic revealed only necrotic tissue. The patient was admitted to the hospital with bleeding mass around the right elbow where the previous melanoma was excised. PAST MEDICAL HISTORY: Significant for diabetes. She is blind. She has chronic kidney disease as well as a history of melanoma. PAST SURGICAL HISTORY: Excision of the melanoma. She also a history of gout. MEDICATIONS: At home are: 1. Allopurinol. 2. Estrogens. 3. Amaryl. ALLERGIES: SHE HAS MULTIPLE ALLERGIES, WHICH ARE LISTED IN THE CHART. FAMILY HISTORY: Noncontributory. SOCIAL HISTORY: The patient does not smoke cigarettes or drink alcohol. Lives alone. REVIEW OF SYSTEMS: As stated above, otherwise was negative. PHYSICAL EXAMINATION: GENERAL: The patient is awake and alert. VITAL SIGNS: At this time reveal mild tachycardia, heart rate around 100. Otherwise, she is afebrile. Blood pressure is normal. HEENT: The sclerae is not icteric. She is blind. NECK: No masses. EXTREMITIES: In the right axilla, there is a large mass about 10 cm, which is firm. In the right arm, there is an area with bloody drainage, which is dressed with suggestion of a mass in this area. Peripheral pulses were palpable. LUNGS: Equal breath sounds are clear bilaterally. CARDIAC: Regular rate and rhythm with no murmur. ABDOMEN: Soft. There is no tenderness. No mass. NEUROLOGIC: Grossly intact. ASSESSMENT: A 54-year-old female with possible recurrent melanoma in the right elbow and also probable metastatic disease in the right axilla. PLAN: Evaluate further with CT of the chest. Plan to consult Oncology, Dr. Jerome. Thank you for asking me to see Ms. Cunningham. MD BRAD Gunn/EDWIGE /[id number]
--- NOTE | 2020-02-29 12:20 | Diagnostic Imaging Report ---
CT BRAIN WO HISTORY: Metastatic melanoma COMPARISON: Report from head CT dated 06/17/2015 TECHNIQUE: Noncontrast axial scans were obtained from skull base to the vertex. Coronal and sagittal reconstructions obtained from the axial data. One or more of the following dose reduction techniques were used: Automated exposure control, adjustment of the mA and/or kV according to patient size, and/or utilization of iterative reconstruction technique. DISCUSSION: Scalp/Skull: Unremarkable. Brain sulci: Mildly prominent. Ventricles: Compensatory dilatation. Extra-axial spaces: No masses or fluid collections. Mild carotid siphon calcifications. Parenchyma: No abnormal densities. No mass, hemorrhage, or large vascular territory acute infarct. Dural sinuses: No abnormal densities. Sellar/Suprasellar region: Intact. Skull base: Intact. Incidental findings: Left ocular lens replacement. IMPRESSION: 1. No acute intracranial abnormalities. 2. Mild generalized cerebral volume loss. Signed by: Dr. Bandar Noble M.D. on 02/29/2020 12:16 PM
--- NOTE | 2020-02-29 12:54 | Diagnostic Imaging Report ---
EXAM: CT Abdomen and Pelvis WITHOUT contrast INDICATION: ^metastatic melanoma ^[id number] ^1120 COMPARISON: Renal ultrasound 02/28/2020, CT chest 02/28/2020, CT abdomen and pelvis 08/05/2016, report only available TECHNIQUE: Abdomen and pelvis were scanned utilizing a multidetector helical scanner from the lung base to the pubic symphysis without administration of IV contrast. Absence of intravenous contrast decreases sensitivity for detection of focal lesions and vascular pathology. Coronal and sagittal reformations were obtained. Routine protocol was performed. IV CONTRAST: None. ORAL CONTRAST: Water RADIATION DOSE: Total DLP: 1541 mGy*cm Estimated effective dose: (DLP x 0.015 x size factor) mSv COMPLICATIONS: None FINDINGS: LINES and TUBES: None. LOWER THORAX: Unchanged 8 mm right lower lobe solid pulmonary nodule. HEPATOBILIARY: Diffuse hepatic steatosis. No focal hepatic lesions. No biliary ductal dilation. GALLBLADDER: Cholecystectomy. SPLEEN: No splenomegaly. PANCREAS: No focal masses or ductal dilatation. ADRENALS: No adrenal nodules KIDNEYS/URETERS: No hydronephrosis. No other contour of the kidneys, already described on CT from 2016. Otherwise, no suspicious masses on limited evaluation. No stones. GI TRACT: No abnormal distention, wall thickening, or evidence of bowel obstruction. Appendix is normal. PELVIC ORGANS/BLADDER: Unremarkable. LYMPH NODES: No lymphadenopathy. VESSELS: Unremarkable. PERITONEUM / RETROPERITONEUM: No free air or fluid. Indeterminate 1.9 x 1.3 cm soft tissue mass in the right lower quadrant mesenteric fat lateral to the right kidney on series 6, image 47. BONES: Degenerative changes at L4-L5. SOFT TISSUES: Unremarkable. IMPRESSION: 1. Indeterminate 1.9 cm soft tissue mass in the right lower quadrant mesenteric fat. If prior CT abdomen and pelvis images from 2016 become available, comparison will be helpful. Otherwise, recommend PET/CT to exclude metastatic melanoma. 2. Otherwise, no metastasis in the abdomen and pelvis. Signed by: Dr. Sydney Miller M.D. on 02/29/2020 12:51 PM
--- NOTE | 2020-02-29 13:17 | NUR ---
IM LETTER EXPLAINED AND GIVEN TO THE PT, ORIGINAL SIGNED AND PLACED IN THE CHART
[2020-02-29] MEDS: SOD POLYSTYRENE SULFONATE SUSP 15 GM/60 ML BTL PO SCH (15:20)
--- NOTE | 2020-02-29 18:39 | Progress Note ---
DATE: 02/29/2020 SUBJECTIVE: Potassium is better. She got some Kayexalate. Review of records suggest baseline creatinine of 2 mg to 2.5 mg range. She is apparently awaiting chemotherapy for myeloma with the help of Dr. Jerome. Denies any dyspnea. Minimal swelling. PHYSICAL EXAMINATION: VITAL SIGNS: Temperature is 98, pulse 74, blood pressure 136/70. CHEST: Clear at this time. EXTREMITIES: Trace edema. NEURO: Alert, appropriate. SKIN: With dryness on the face, scaling. EXTREMITIES: Elbow was bandaged. LABORATORY DATA: Creatinine 2.3, estimated GFR 22. Last year creatinine was 2.7 in the hospital system. Prior to that 2.5 or so, serum CO2 24, K is 4.6, estimated globulin level 2.7. ASSESSMENT: 1. Chronic kidney disease stage 4. 2. Diabetic nephropathy. 3. Recurrent hyperkalemia. 4. History of hypercalcemia in the past. PTH and vitamin D levels are pending at the time of this dictation. 5. Phosphorus is not available. PLAN: Serial chemistries. She probably does need regular potassium binder. Patiromer was too expensive, we will try Kayexalate on an every other day basis, as knowing her history most likely the potassium will go up again. Keep to a low-potassium diet. For the time being avoid BRANDON inhibitor or ARB as the side effects in terms of hyperkalemia seems to be too much of a problem, we will follow along. MD KAIDEN Ramírez/EDWIGE /[id number]
--- NOTE | 2020-02-29 19:58 | NUR ---
SPOKE TO DR HAY REGARDING CARE AND ABD CT MASS. PATIENT WAS SCHEDULED FOR OUTPATIENT PET SCAN BUT DIDN'T MAKE APPOINTMENT PRIOR TO ADMISSION. DR. HAY WANTS ASSISTANT ATHLETIC TRAINER TO ARRANGE TRANSPORTATION TO AND FROM MEDICAL APPOINTMENTS IF POSSIBLE. PATIENT LIVES ALONE AND IS LEGALLY BLIND. PATIENT NEEDS ASSISTANCE WITH MEDICAL CARE.
--- NOTE | 2020-02-29 20:35 | Consultation ---
DATE OF CONSULTATION: 02/29/2020 Cardiology Consultation REASON FOR CONSULTATION: Tachycardia. HISTORY OF PRESENT ILLNESS: This is a 54-year-old woman with history of hypertension, diabetes mellitus, chronic kidney disease and melanoma, who presented with complaints of bleeding from a prior melanoma removal. On evaluation in the ER, she was found to have purulent drainage at that site and the patient was admitted for further care. CT revealed a soft-tissue mass complex collection at the elbow and the patient was started on IV antibiotics. While the patient was undergoing evaluation of her soft tissue mass, she was noted to have tachycardia on telemetry for which Cardiology is consulted. The patient denies chest pain, shortness of breath, edema, orthopnea, or PND. She does report episodes of palpitations last night. REVIEW OF SYSTEMS: Negative except as per HPI. PAST MEDICAL HISTORY: 1. Hypertension. 2. Diabetes mellitus. 3. Chronic kidney disease. 4. Prior melanoma status post resection. PAST SURGICAL HISTORY: 1. Cholecystectomy. 2. Appendectomy. 3. Hysterectomy. 4. Hip replacement. 5. Melanoma resection. ALLERGIES: PLEASE SEE EMR. MEDICATIONS: Please see medication list. SOCIAL HISTORY: No tobacco, alcohol, or illicit drugs. FAMILY HISTORY: Denies. PHYSICAL EXAMINATION: VITAL SIGNS: Temperature 98 degrees, pulse 74, respiratory rate 16, blood pressure 136/70, oxygen saturation 100% on room air. GENERAL: Awake, alert, well-developed, well-nourished. HEENT: Normocephalic, atraumatic. Blind. NECK: Supple. No thyromegaly or cervical lymphadenopathy. No carotid bruits. LUNG: Clear to auscultation bilaterally. No wheezes or crackles. CARDIOVASCULAR: Normal rate. Regular rhythm. No murmur. Normal S1 and S2. ABDOMEN: Soft and nontender. EXTREMITIES: No edema. LABORATORY DATA: Sodium 141, potassium 4.6, chloride 106, CO2 of 24, BUN 40, creatinine 2.31. WBC 11.73, hemoglobin 11.2, hematocrit 35.1, platelets 304. TELEMETRY: Was personally reviewed revealing normal sinus rhythm and sinus tachycardia. Runs of frequent PACs were briefly observed. IMPRESSION: 1. Soft tissue mass at the right elbow. 2. Hypertension. 3. Diabetes mellitus. 4. Chronic kidney disease. RECOMMENDATIONS: Increase metoprolol. Check TSH. Obtain echocardiogram. Monitor the patient closely on telemetry while admitted. Further evaluation of soft tissue mass per primary. Thank you for this consult. We will continue to follow. Beatriz Ryan MD ABS/MODL /[id number]
[2020-02-29] MEDS ORDERED: METOPROLOL TARTRATE 25 MG TAB PO SCH (21:00)
[2020-03-01] VITALS (7 sets, daily range): BP systolic 122–149; BP diastolic 66–78
[2020-03-01] MEDS: CLINDAMYCIN 600MG / 50ML 50 ML IV SCH ×4 (05:37→23:56)
[2020-03-01] MEDS: SODIUM CHLORIDE 0.9% 1000ML 1,000 ML IV SCH ×3 (05:37→20:54)
[2020-03-01 06:17] LABS: ANION GAP 15.2 mmol/L (8-16); CALCIUM 8.2 mg/dL (8.4-10.2); CREATININE, SERUM 2.18 mg/dL (0.57-1.11); POTASSIUM 4.2 mmol/L (3.5-5.1)
--- NOTE | 2020-03-01 07:00 | NUR ---
RECEIVED PATIENT RESTING IN BED NO S/S OF DISTRESS. BED LOW, WHEELS LOCKED, SIDE RAILS X2. CALL LIGHT IN REACH WILL CONTINUE TO MONITOR PATIENT.
[2020-03-01] MEDS: INSULIN REGULAR, HUMAN 100 UNIT/1 ML 3ML VIAL SQ SCH ×4 (07:30→20:57)
[2020-03-01] MEDS: METOPROLOL TARTRATE 25 MG TAB PO SCH ×2 (08:15→17:37)
[2020-03-01] MEDS: CHLORTHALIDONE 25 MG TAB PO SCH (08:15)
--- NOTE | 2020-03-01 15:58 | Progress Note ---
DATE: 03/01/2020 Cardiology Progress Note SUBJECTIVE: The patient denies chest pain or shortness of breath. OBJECTIVE: VITAL SIGNS: Temperature 98 degrees, pulse 71, respiratory rate 17, blood pressure 135/71, oxygen 96% on room air. GENERAL: Awake, alert, in no acute distress. HEENT: Blind. LUNGS: Clear to auscultation bilaterally. No wheeze or crackles. CARDIOVASCULAR: Normal rate regular rhythm. No murmur. Normal S1, S2. ABDOMEN: Soft, nontender. EXTREMITIES: No edema. CARDIAC MEDICATIONS: Metoprolol tartrate 50 mg p.o. b.i.d., chlorthalidone 25 mg p.o. daily. LABORATORY DATA: Sodium 139, potassium 4.2, chloride 108, CO2 of 20, BUN 40, creatinine 2.18. TELEMETRY: Telemetry was personally reviewed and interpreted revealing normal sinus rhythm with PVCs. ASSESSMENT: 1. Soft tissue mass at the right elbow/. 2. Hypertension. 3. Diabetes mellitus. 4. Frequent PACs. 5. Chronic kidney disease. PLAN: Blood pressure is improved with metoprolol. Continue current dose. Monitor patient closely on telemetry. Check TSH. Echocardiogram demonstrated normal LV systolic function. No further cardiac evaluation is indicated at this time. Keep potassium above 4 and magnesium above 2. Further evaluation of soft tissue mass per primary. Thank you for this consult. We will continue to follow. Beatriz Ryan MD ABS/MODL /[id number]
[2020-03-02] VITALS (8 sets, daily range): BP systolic 123–141; BP diastolic 68–80
[2020-03-02] MEDS: SODIUM CHLORIDE 0.9% 1000ML 1,000 ML IV SCH (04:00)
[2020-03-02 06:06] LABS: BASOPHILS # (AUTO) 0.1 (0.0-0.1); BASOPHILS % 0.6 % (0.0-1.0); EOSINOPHILS # (AUTO) 0.2 (0.0-0.4); EOSINOPHILS % 2.1 % (0.0-6.0); HEMATOCRIT 30.9 % (34.2-44.1); HEMOGLOBIN 9.8 g/dL (12.0-16.0); LYMPHOCYTES # (AUTO) 1.5 (1.0-3.2); LYMPHOCYTES % 16.1 % (18.0-39.1); MEAN CORPUSCULAR HEMOGLOBIN 28.9 pg (28-32); MEAN CORPUSCULAR HGB CONC 31.7 g/dL (31-35); MEAN CORPUSCULAR VOLUME 91.2 fL (81-99); MONOCYTES # (AUTO) 0.6 (0.2-0.8); MONOCYTES % 6.2 % (4.4-11.3); NEUTROPHILS % 74.5 % (38.7-80.0); PLATELET COUNT 210 x10e3/uL (140-360); RED BLOOD COUNT 3.39 x10e6/uL (3.6-5.1); RED CELL DISTRIBUTION WIDTH 14.4 % (11.7-14.4)
[2020-03-02] MEDS: CLINDAMYCIN 600MG / 50ML 50 ML IV SCH ×4 (06:12→23:56)
[2020-03-02 06:30] LABS: ALBUMIN 2.3 g/dL (3.5-5.0); ALBUMIN/GLOBULIN RATIO 0.8 (0.8-2.0); ANION GAP 14.4 mmol/L (8-16); CREATININE, SERUM 2.05 mg/dL (0.57-1.11); MAGNESIUM 1.4 MG/DL (1.3-2.1); POTASSIUM 4.4 mmol/L (3.5-5.1)
[2020-03-02] MEDS: INSULIN REGULAR, HUMAN 100 UNIT/1 ML 3ML VIAL SQ SCH ×4 (07:50→21:10)
[2020-03-02] MEDS: METOPROLOL TARTRATE 25 MG TAB PO SCH ×2 (08:33→17:22)
[2020-03-02] MEDS: CHLORTHALIDONE 25 MG TAB PO SCH (08:33)
--- NOTE | 2020-03-02 08:45 | Diagnostic Imaging Report ---
EXAM: US RENAL RETROPERITONEAL COMP DATE: 02/28/2020 4:53 PM INDICATION: Acute kidney injury COMPARISON: None available FINDINGS: The right kidney is normal in size measuring 10.1 x 4.4 x 4.3 cm with cortical thickness of 1.5 cm. Cortical echogenicity appears increased. There is a simple appearing cyst identified within the upper/mid right kidney measuring up to 1.3 cm. There is no evidence for solid renal mass, hydronephrosis, or shadowing calculi. The left kidney is normal in size measuring 10.2 x 4.3 x 4.1 cm with cortical thickness of 1.8 cm. Cortical echogenicity appears increased. There is a simple appearing cyst identified within the mid left kidney measuring up to 1.3 cm. There is no evidence for solid renal mass, hydronephrosis, or shadowing calculi. The partially distended urinary bladder demonstrates no significant abnormalities. Prevoid volume is 34 cc. IMPRESSION: Increased renal cortical echogenicity noted bilaterally which can be seen in the setting of medical renal disease. Bilateral renal cysts. Signed by: Dr. Collin Moreno MD on 03/02/2020 8:42 AM
[2020-03-02] MEDS: SOD POLYSTYRENE SULFONATE SUSP 15 GM/60 ML BTL PO SCH (14:30)
--- NOTE | 2020-03-02 18:47 | NUR ---
patient up in bed, alert with no distress, patient aware about the procedure tomorrow
[2020-03-03] VITALS (7 sets, daily range): BP systolic 124–153; BP diastolic 73–100
[2020-03-03] MEDS ORDERED: SODIUM CHLORIDE 0.9% 250ML 250 ML ONE (00:01)
[2020-03-03 05:50] LABS: BASOPHILS # (AUTO) 0.1 (0.0-0.1); BASOPHILS % 0.8 % (0.0-1.0); EOSINOPHILS # (AUTO) 0.2 (0.0-0.4); EOSINOPHILS % 2.3 % (0.0-6.0); HEMATOCRIT 32.1 % (34.2-44.1); HEMOGLOBIN 10.4 g/dL (12.0-16.0); LYMPHOCYTES # (AUTO) 1.7 (1.0-3.2); LYMPHOCYTES % 18.1 % (18.0-39.1); MEAN CORPUSCULAR HEMOGLOBIN 29.1 pg (28-32); MEAN CORPUSCULAR HGB CONC 32.4 g/dL (31-35); MEAN CORPUSCULAR VOLUME 89.9 fL (81-99); MONOCYTES # (AUTO) 0.5 (0.2-0.8); MONOCYTES % 5.2 % (4.4-11.3); NEUTROPHILS # (AUTO) 6.9 (2.1-6.9); NEUTROPHILS % 72.8 % (38.7-80.0); PLATELET COUNT 227 x10e3/uL (140-360); RED BLOOD COUNT 3.57 x10e6/uL (3.6-5.1); RED CELL DISTRIBUTION WIDTH 14.1 % (11.7-14.4)
[2020-03-03] MEDS: CLINDAMYCIN 600MG / 50ML 50 ML IV SCH ×3 (05:52→17:52)
[2020-03-03 06:50] LABS: ALBUMIN 2.4 g/dL (3.5-5.0); ALBUMIN/GLOBULIN RATIO 0.7 (0.8-2.0); ANION GAP 14.6 mmol/L (8-16); CALCIUM 8.4 mg/dL (8.4-10.2); CREATININE, SERUM 1.97 mg/dL (0.57-1.11); POTASSIUM 4.6 mmol/L (3.5-5.1)
[2020-03-03] MEDS: INSULIN REGULAR, HUMAN 100 UNIT/1 ML 3ML VIAL SQ SCH ×4 (07:30→21:45)
[2020-03-03] MEDS: METOPROLOL TARTRATE 25 MG TAB PO SCH ×2 (09:00→17:52)
--- NOTE | 2020-03-03 09:41 | NUR ---
Patient off the unit for Surgery, AAOx3, No distress noted
[2020-03-03] MEDS ORDERED: SODIUM CHLORIDE 0.9% 100 ML ONE (10:07)
[2020-03-03] MEDS ORDERED: MINERAL OIL STERILE 10ML VIAL ONE ×2 (10:07→12:14)
[2020-03-03] MEDS ORDERED: HEPARIN SOD (PORCINE) 1000 UNIT/ML SDV ONE (10:07)
[2020-03-03] MEDS ORDERED: BACITRACIN 50,000 UNIT VIAL ONE (10:07)
[2020-03-03] MEDS ORDERED: BUPIVACAINE 0.25% 30ML SDV INJ ONE (10:07)
[2020-03-03] MEDS ORDERED: MUPIROCIN 2% OINT 22 GM TUBE ONE (10:07)
[2020-03-03] MEDS ORDERED: BUPIVACAINE HCL 0.5% INJ 30 ML VIAL INJ ONE (10:54)
[2020-03-03] MEDS ORDERED: MORPHINE SULFATE 5 MG/ML VIAL IV PRN (12:15)
[2020-03-03] MEDS ORDERED: MORPHINE SULFATE INJ 4 MG/ML INJ 1ML IV PRN (12:15)
[2020-03-03] MEDS ORDERED: ONDANSETRON HCL INJ 2MG/ML 2ML 2 MG/ML VIAL IV PRN (12:15)
[2020-03-03] MEDS ORDERED: FENTANYL CITRATE/PF 100MCG/2 ML INJ ONE ×2 (12:52→20:07)
--- NOTE | 2020-03-03 13:44 | Operative Report ---
DATE OF PROCEDURE: 03/03/2020 SURGEON: Mau Mcintosh MD PREOPERATIVE DIAGNOSIS: Recurrent melanoma, right arm, right axillary mass. POSTOPERATIVE DIAGNOSIS: Recurrent melanoma, right arm, right axillary mass. PROCEDURES: 1. Right axillary dissection. 2. Wide excision of mass in the right elbow 3. Placement of left subclavian venous access port. OPTICIANRY TEACHER: None. ANESTHESIA: General. INDICATIONS AND FINDINGS: The patient is a 54-year-old female, known history of melanoma, presented with a large mass in the right axilla. At Surgery, there was a large mass in right axilla was probably 15 cm in diameter, which was removed. Frozen section suggested melanoma. There was other large lymph nodes, which were removed with the specimen. There was also an about 3 cm mass at the right elbow, which was widely excised. The left subclavian venous access port was placed without difficulty. Tip of the catheter was seen to be in the superior vena cava, blood aspirated freely from the port at the procedure. TECHNIQUE: Initially after adequate general endotracheal anesthesia, the 1st part of procedure was placement of the venous access port, left subclavian area was prepped and draped in sterile fashion with ChloraPrep solution. Left subclavian vein was aspirated. J-wire was introduced, passed easily without resistance. Position of the wire in superior vena was confirmed with fluoroscopy. Incision was then made with deltopectoral groove with the wire exiting through the wound. A subcutaneous pocket was created in the inferior portion of the wound. Peel-away introducing sheath and dilator was passed over the guidewire and the catheter which had been flushed with heparinized saline was passed through the sheath and position of the superior vena cava under fluoroscopy. The catheter was aspirated, found to aspirate blood freely, was then flushed with heparinized saline, and cut to the appropriate length, disconnected subcutaneous port which had also been flushed with heparinized saline. The port was then placed into the subcutaneous pocket, held in the pocket with sutures of 2-0 Ethibond. Entire port and catheter were inspected with fluoroscopy. There were no kinks and the catheter tip was seen to be in the superior vena cava. The wound was then closed with 3-0 Vicryl subcutaneous tissue and 4-0 Vicryl subcuticular to the skin. Dermabond and sterile dressing were applied. The patient was then re-prepped and draped with the right chest, axilla, and right arm prepped and draped with ChloraPrep solution. The left thigh prepped with Betadine. Incision was made over the area of large mass in the right axilla, carried down through subcutaneous tissue. Skin and subcutaneous tissue were dissected away from the underlying mass. The underlying mass with a rim of normal tissue was dissected free from the surrounding tissues down to the chest wall. Pectoralis major muscle was dissected away from the mass as was the pectoralis minor muscle. A mass was followed into the axilla. Dissection was carried inferiorly with axillary tissue removed with the mass. There was at least one other large lymph node, which was removed with the mass. Dissection was then carried along the right axillary vein. The branches of the vein going into the mass were divided between hemoclips. Also, some branches of the chest wall were divided between hemoclips. The long thoracic nerve was identified and preserved as was the thoracodorsal neurovascular bundle, which were dissected away from the mass, taking the axillary tissue with the mass. The mass extended into the upper medial arm along the brachial vein and nerves; this was dissected away from the structures, preserving the brachial vein, and the large nerves. The mass was then dissected away from the latissimus dorsi muscle, was removed with the remaining axillary tissue. Hemostasis was achieved with electrocautery. The wound was irrigated with sterile water, inspected for hemostasis, which was seen to be adequate. A 19-Congolese Chong drain was placed into the wound through a separate stab wound incision; this wound was then closed with 0 Vicryl subcutaneous tissue and gaston for the skin. Attention was then turned to the lesion on the right elbow, which was about 3 cm in diameter; this was widely excised with a rim of normal tissue, approximately 0.5 cm of normal tissue, it was carried down through the skin into the subcutaneous tissue down to the periosteum; this was done in elliptical fashion and the mass was completely excised, taking out the periosteum and fascia of the muscle. Hemostasis was achieved with electrocautery. This wound was then closed by Plastic surgery, Dr. Esqueda; details of which recovered in his note. The patient tolerated this portion of procedure well. Estimated blood loss was 200 mL. There were no complications. All counts were correct. The patient was taken to the recovery room in satisfactory condition. MD BRAD Gunn/MODL /[id number] cc: MD Azar Means MD Salman A Khan, MD Kent Schnell, MD MTDD
--- NOTE | 2020-03-03 13:44 | Diagnostic Imaging Report ---
EXAMINATION: CHEST SINGLE (PORTABLE) INDICATION: Line placement COMPARISON: Chest CT 02/28/2020 FINDINGS: LINES/TUBES:Interval placement of left chest port with catheter tip terminating at the superior cavoatrial junction. LUNGS:The lungs are moderately inflated. Mild left basilar patchy opacities. PLEURA:No pleural effusion or pneumothorax. MEDIASTINUM:The cardiomediastinal silhouette appears unchanged in size and shape. BONES/SOFT TISSUES:No acute osseous injury. ABDOMEN:No free air under the diaphragm. IMPRESSION: Left chest port catheter tip terminates at the superior cavoatrial junction. Left basilar patchy opacities, most likely subsegmental atelectasis. Signed by: Jeannie Cazares MD on 03/03/2020 1:40 PM
[2020-03-03] MEDS: SODIUM CHLORIDE 0.9% 1000ML 1,000 ML IV SCH (13:53)
--- NOTE | 2020-03-03 13:54 | Operative Report ---
DATE OF PROCEDURE: 03/03/2020 SURGEON: Artie Esqueda MD PREOPERATIVE DIAGNOSIS: Rule out malignant melanoma, right elbow. POSTOPERATIVE DIAGNOSIS: Pending final pathology. PROCEDURE: Split-thickness skin grafting, right lateral arm/elbow, 50 cm2. ANESTHESIA: General. HISTORY: The patient is a 54-year-old [id number] female, who was undergoing resection of a possibly recurrent malignant melanoma on the lateral aspect of the right elbow. Because of the previous surgery and the extent of the surgery, primary wound closure will not be possible and Plastic surgery has been called for skin grafting of the resultant wound. The risks, benefits, and alternatives were discussed with the patient and the family are prepared to undergo the procedure as outlined. PROCEDURE IN DETAIL: The Plastic Surgical team came into the OR, the lesion on the right lateral aspect of the arm/elbow had been removed. The resultant defect was a full thickness and measured 50 cm2. A time-out was performed. At this point, the left anterior lateral thigh was prepped and draped in a sterile fashion. Using a dermatome set to approximately 15 thousands of an inch thickness. A split-thickness graft was then harvested, it was then meshed in a 1-1/2 to 1 fashion, it was placed onto the wound bed, dermis side down, and secured in place using surgical clips. Bactroban ointment, Xeroform gauze, and then a sterile dressing were applied. On the left thigh Xeroform gauze, Bactroban ointment, and a sterile dressing were applied. The patient was then returned to recovery room in satisfactory condition. She is going to have a VAC placed by the wound care team, shortly thereafter. The estimated blood loss for this portion of the procedure was negligible. Artie Esqueda MD ER/MODL /[id number]
--- NOTE | 2020-03-03 14:11 | NUR ---
Recvd patient from PACU, , AAOX3, Dressing on rt elbow is intact, no drain or bleeding, rt axillary dressing intact with gaston ON, Venous port access left upper chest and left thigh dressing is intact, on SCDs, she tolerated PO fluids, keep monitoring
[2020-03-03] MEDS ORDERED: PHENYLEPHRINE HCL 1% 10 MG/ML VIAL ONE (15:01)
[2020-03-03] MEDS ORDERED: SEVOFLURANE INHAL SOLN 250 ML PEN BTL ONE (15:01)
[2020-03-03] MEDS ORDERED: LIDOCAINE HCL 2% LOCAL INJ 5 ML SDV VIAL INJ ONE (15:01)
[2020-03-03] MEDS ORDERED: ACETAMINOPHEN 1000 MG/100 ML IV ONE (15:01)
[2020-03-03] MEDS ORDERED: EPHEDRINE SULFATE INJ 50 MG/ML VIAL ONE (15:01)
[2020-03-03] MEDS ORDERED: DEXAMETHASONE SOD PHOS INJ 4 MG/ML VIAL ONE (15:01)
[2020-03-03] MEDS ORDERED: PROPOFOL IV EMULSION 10 MG/ML 20 ML VIAL ONE (15:01)
[2020-03-03] MEDS ORDERED: ONDANSETRON HCL INJ 2MG/ML 2ML 2 MG/ML VIAL ONE (15:01)
[2020-03-03] MEDS: HYDROCODONE/APAP 5MG-325MG TAB PO PRN (16:40)
--- NOTE | 2020-03-03 19:13 | NUR ---
RECEIVED BEDSIDE SHIFT REPORT FROM PREVIOUS NURSE. CALL LIGHT WITHIN REACH. PATIENT IN BED.
[2020-03-03] MEDS: SODIUM CHLORIDE FLUSH 10 ML SYR INJ PRN (19:40)
[2020-03-03] MEDS ORDERED: MIDAZOLAM HCL 2 MG/2 ML VIAL ONE (20:07)
[2020-03-04] VITALS (8 sets, daily range): BP systolic 116–149; BP diastolic 74–100
[2020-03-04] MEDS: CLINDAMYCIN 600MG / 50ML 50 ML IV SCH ×4 (00:01→17:31)
[2020-03-04] MEDS: SODIUM CHLORIDE 0.9% 1000ML 1,000 ML IV SCH ×2 (05:34→08:15)
[2020-03-04] MEDS: HYDROCODONE/APAP 5MG-325MG TAB PO PRN ×3 (05:52→21:14)
[2020-03-04 06:20] LABS: BASOPHILS # (AUTO) 0.1 (0.0-0.1); BASOPHILS % 0.3 % (0.0-1.0); EOSINOPHILS % 0.1 % (0.0-6.0); HEMATOCRIT 30.3 % (34.2-44.1); HEMOGLOBIN 9.6 g/dL (12.0-16.0); LYMPHOCYTES # (AUTO) 1.3 (1.0-3.2); LYMPHOCYTES % 8.5 % (18.0-39.1); MEAN CORPUSCULAR HEMOGLOBIN 28.5 pg (28-32); MEAN CORPUSCULAR HGB CONC 31.7 g/dL (31-35); MEAN CORPUSCULAR VOLUME 89.9 fL (81-99); MONOCYTES # (AUTO) 0.6 (0.2-0.8); MONOCYTES % 4.1 % (4.4-11.3); NEUTROPHILS % 86.3 % (38.7-80.0); PLATELET COUNT 271 x10e3/uL (140-360); RED BLOOD COUNT 3.37 x10e6/uL (3.6-5.1); RED CELL DISTRIBUTION WIDTH 14.1 % (11.7-14.4)
[2020-03-04 06:42] LABS: ANION GAP 14.8 mmol/L (8-16); CALCIUM 8.6 mg/dL (8.4-10.2); CREATININE, SERUM 2.23 mg/dL (0.57-1.11); POTASSIUM 4.8 mmol/L (3.5-5.1)
--- NOTE | 2020-03-04 07:05 | NUR ---
Received patient lying in bed with eyes open. Respiration even and unlabored without SOB. Denies pain. Call light in reach.
--- NOTE | 2020-03-04 07:43 | NUR ---
GAVE BEDSIDE SHIFT REPORT TO ONCOMING NURSE. CALL LIGHT WITHIN REACH. PATIENT IN BED.
[2020-03-04] MEDS: METOPROLOL TARTRATE 25 MG TAB PO SCH ×2 (08:02→17:31)
[2020-03-04] MEDS: INSULIN REGULAR, HUMAN 100 UNIT/1 ML 3ML VIAL SQ SCH ×4 (08:05→21:12)
--- NOTE | 2020-03-04 13:07 | NUR ---
Renal Progress Note for 03/04/20 SUBJECTIVE: Potassium is better. She got some Kayexalate in the past. Review of records suggest baseline creatinine of 2 mg to 2.5 mg range. She is apparently awaiting chemotherapy for myeloma with the help of Dr. Jerome. Denies any dyspnea. Minimal swelling. PHYSICAL EXAMINATION: VITAL SIGNS: Temperature is 98, pulse 74, blood pressure 136/70. CHEST: Clear at this time. EXTREMITIES: Trace edema. NEURO: Alert, appropriate. SKIN: With dryness on the face, scaling. EXTREMITIES: Elbow was bandaged. LABORATORY DATA: Reviewed ASSESSMENT: 1. Chronic kidney disease stage 4. 2. Diabetic nephropathy. 3. Recurrent hyperkalemia. 4. History of hypercalcemia in the past. PTH within acceptable range 5. Phosphorus is not available. PLAN: Serial chemistries. She probably does need regular potassium binder. Patiromer was too expensive, we will try Kayexalate on an every other day basis, as knowing her history most likely the potassium will go up again. Keep to a low-potassium diet. For the time being avoid BRANDON inhibitor or ARB as the side effects in terms of hyperkalemia seems to be too much of a problem, we will follow along.
--- NOTE | 2020-03-04 19:00 | NUR ---
RECEIVED REPORT FROM PREVIOUS NURSE. CALL LIGHT WITHIN REACH. PATIENT IN BED.
--- NOTE | 2020-03-04 19:10 | NUR ---
Report given to casino shift manager. Respiration even and unlabored without SOB. Denies pain. Call light in reach.
[2020-03-04] MEDS: SODIUM CHLORIDE FLUSH 10 ML SYR INJ PRN (19:35)
--- NOTE | 2020-03-04 20:30 | NUR ---
PATIENT WAS EDUCATED ABOUT WHY SHE NEEDS A BED ALARM AND SCDS. PATIENT REFUSED BED ALARM AND SCDS AND A BATH
[2020-03-05] MEDS: CLINDAMYCIN 600MG / 50ML 50 ML IV SCH ×4 (00:20→17:45)
[2020-03-05 00:36] VITALS: BP 124/68
[2020-03-05 05:04] VITALS: BP 125/65
[2020-03-05 05:54] LABS: BASOPHILS # (AUTO) 0.1 (0.0-0.1); BASOPHILS % 0.7 % (0.0-1.0); EOSINOPHILS # (AUTO) 0.3 (0.0-0.4); EOSINOPHILS % 1.7 % (0.0-6.0); HEMATOCRIT 32.6 % (34.2-44.1); HEMOGLOBIN 10.2 g/dL (12.0-16.0); LYMPHOCYTES # (AUTO) 3.8 (1.0-3.2); MEAN CORPUSCULAR HEMOGLOBIN 27.7 pg (28-32); MEAN CORPUSCULAR HGB CONC 31.3 g/dL (31-35); MEAN CORPUSCULAR VOLUME 88.6 fL (81-99); MONOCYTES # (AUTO) 0.9 (0.2-0.8); MONOCYTES % 5.3 % (4.4-11.3); NEUTROPHILS # (AUTO) 11.9 (2.1-6.9); NEUTROPHILS % 69.2 % (38.7-80.0); PLATELET COUNT 344 x10e3/uL (140-360); RED BLOOD COUNT 3.68 x10e6/uL (3.6-5.1); RED CELL DISTRIBUTION WIDTH 14.5 % (11.7-14.4)
[2020-03-05 06:21] LABS: ALBUMIN 2.5 g/dL (3.5-5.0); ALBUMIN/GLOBULIN RATIO 0.7 (0.8-2.0); ANION GAP 14.8 mmol/L (8-16); CALCIUM 8.6 mg/dL (8.4-10.2); CREATININE, SERUM 2.09 mg/dL (0.57-1.11); MAGNESIUM 1.4 MG/DL (1.3-2.1); POTASSIUM 4.8 mmol/L (3.5-5.1)
--- NOTE | 2020-03-05 07:32 | NUR ---
GAVE BEDSIDE SHIFT REPORT TO ONCOMING NURSE. CALL LIGHT WITHIN REACH. PATIENT IN BED. HOURLY ROUNDING PERFORMED.
[2020-03-05 07:49] VITALS: BP 131/79
[2020-03-05] MEDS: INSULIN REGULAR, HUMAN 100 UNIT/1 ML 3ML VIAL SQ SCH ×4 (08:00→21:43)
[2020-03-05] MEDS: METOPROLOL TARTRATE 25 MG TAB PO SCH ×2 (08:03→17:45)
[2020-03-05 09:17] VITALS: BP 131/79
[2020-03-05 11:35] VITALS: BP 128/81
[2020-03-05] MEDS: HYDROCODONE/APAP 5MG-325MG TAB PO PRN (11:53)
--- NOTE | 2020-03-05 12:18 | NUR ---
Dressing changed to right thigh. Respiration even and unlabored without SOB. Right elbow wound vac intact and working. MARK drain to right axillary in placed and draining serosanguinous fluid to bulb. Call light in reach.
--- NOTE | 2020-03-05 14:42 | NUR ---
Renal Progress Note for 03/05/20 SUBJECTIVE: Potassium is better. She got some Kayexalate in the past. Review of records suggest baseline creatinine of 2 mg to 2.5 mg range. She is apparently awaiting chemotherapy for myeloma with the help of Dr. Jerome. Denies any dyspnea. Minimal swelling. PHYSICAL EXAMINATION: VITAL SIGNS: Temperature is 98.2, pulse 69, blood pressure 128/81. CHEST: Clear at this time. EXTREMITIES: Trace edema. NEURO: Alert, appropriate. SKIN: With dryness on the face, scaling. EXTREMITIES: Elbow was bandaged. LABORATORY DATA: Reviewed ASSESSMENT: 1. Chronic kidney disease stage 4. 2. Diabetic nephropathy. 3. Recurrent hyperkalemia. 4. History of hypercalcemia in the past. PTH within acceptable range 5. Phosphorus is not available. PLAN: Serial chemistries. She probably does need regular potassium binder. Patiromer was too expensive, Keep to a low-potassium diet. For the time being avoid BRANDON inhibitor or ARB as the side effects in terms of hyperkalemia seems to be too much of a problem, we will follow along.
--- NOTE | 2020-03-05 16:13 | NUR ---
Nutrition Screen Note RD Recommendation for Physician: - Recommend adding Low Potassium to diet Plan of Care: RD following, monitoring for tolerance and adequacy Reason for RD involvement: LOS Primary Diagnose(s): abscess of R elbow, hyperkalemia PMH: DM, CKD4, HTN, blindness Ht: 72 in Wt: 196 lb BMI: 26.6 kg/m2 IBW: [address] Assessment: (03/05) 54 YOF admitted for abscess of the R elbow and hyperkalemia. Pt seen today for LOS. Noted multiple allergies on admit, reactions noted in chart and allergies recorded in [facility]. Pt safe to self select as feasible with current limited menu, preferences obtained. Pt reports 8# intentional wt loss since September. She reports good appetite and po intake, denies GI distress. All questions and concerns addressed at time of visit. Chart reviewed. Labs and meds reviewed. Will continue to monitor. Current Diet: 1800 ADA Malnutrition Evaluation (03/05/20) The patient does not meet criteria for a specified degree of malnutrition at this time. Will re-evaluate at follow-up as appropriate. Diet Education Needs Assessment: Diet education not indicated. Diet tolerance: tolerating po Nutrition Care Level: low Signed: Becca Tran RD, LD, CNSC
--- NOTE | 2020-03-05 19:34 | NUR ---
Report given to possum trapper. Respiration even and unlabored without SOB. Call light in reach.
--- NOTE | 2020-03-05 19:59 | NUR ---
RECEIVED REPORT FROM 7AM NURSE. PATIENT CONTINUE RESTING, NO COMPLAINTS OF PAIN. WILL CONTINUE TO MONITOR.
[2020-03-05 21:12] VITALS: BP 140/65
[2020-03-06] VITALS (9 sets, daily range): BP systolic 116–141; BP diastolic 65–100
[2020-03-06] MEDS: CLINDAMYCIN 600MG / 50ML 50 ML IV SCH ×3 (00:16→11:48)
[2020-03-06 07:02] LABS: BASOPHILS # (AUTO) 0.1 (0.0-0.1); BASOPHILS % 0.6 % (0.0-1.0); EOSINOPHILS # (AUTO) 0.3 (0.0-0.4); EOSINOPHILS % 2.4 % (0.0-6.0); HEMATOCRIT 28.9 % (34.2-44.1); HEMOGLOBIN 9.1 g/dL (12.0-16.0); LYMPHOCYTES # (AUTO) 1.8 (1.0-3.2); LYMPHOCYTES % 17.9 % (18.0-39.1); MEAN CORPUSCULAR HEMOGLOBIN 27.7 pg (28-32); MEAN CORPUSCULAR HGB CONC 31.5 g/dL (31-35); MEAN CORPUSCULAR VOLUME 88.1 fL (81-99); MONOCYTES # (AUTO) 0.6 (0.2-0.8); MONOCYTES % 5.4 % (4.4-11.3); NEUTROPHILS # (AUTO) 7.5 (2.1-6.9); NEUTROPHILS % 72.8 % (38.7-80.0); RED BLOOD COUNT 3.28 x10e6/uL (3.6-5.1); RED CELL DISTRIBUTION WIDTH 14.5 % (11.7-14.4)
--- NOTE | 2020-03-06 07:24 | NUR ---
REPORT GIVEN TO AM NURSE, PATIENT CONTINUE RESTING IN BED, NO DISTRESS, NO COMPLAINTS OF PAIN. CALL LIGHT REMAIN IN HER REACH. DRESSING AND WOUND VAC REMAIN TO HER RIGHT ELBOW/ARM AREA AND DRESSING REMAIN TO HER LEFT THIGH AREA. LEFT UPPER PORT-A-CATH REMAIN INTACT. INFORMED PATIENT TO CALL IF SHE NEEDED ANYTHING.
[2020-03-06 07:27] LABS: ALBUMIN 2.3 g/dL (3.5-5.0); ALBUMIN/GLOBULIN RATIO 0.7 (0.8-2.0); CALCIUM 8.7 mg/dL (8.4-10.2); CREATININE, SERUM 1.87 mg/dL (0.57-1.11); MAGNESIUM 1.3 MG/DL (1.3-2.1)
[2020-03-06 08:07] LABS: PLATELET ESTIMATE ADEQUATE; PLATELET MORPHOLOGY COMMENT FEW EDTA CLUMPING; RBC MORPHOLOGY COMMENT NORMAL
[2020-03-06 08:08] LABS: PLATELET COUNT 251 x10e3/uL (140-360)
[2020-03-06] MEDS: METOPROLOL TARTRATE 25 MG TAB PO SCH ×2 (08:53→17:00)
[2020-03-06] MEDS: INSULIN REGULAR, HUMAN 100 UNIT/1 ML 3ML VIAL SQ SCH ×4 (08:55→21:12)
[2020-03-06] MEDS ORDERED: ONDANSETRON HCL 4 MG ORAL DISINTEGRATING TAB PO PRN (12:30)
[2020-03-06] MEDS ORDERED: FUROSEMIDE 20 MG TAB PO ONE (16:40)
--- NOTE | 2020-03-06 16:50 | NUR ---
WOUND CARE F/U CONSULT FOR 54 YO FEMALE ADMITTED TO [facility] WITH A HX OF ABSCESS TO RIGHT ELBOW, HYPERKALEMIA, RENAL INSUFFICIENCY. ON 03/03/2020 PT HAD A SPLIT THICKNESS GRAFT TO RIGHT ARM APPLIED BY DR. GRAY AND FOLLOWED UP WITH APPLICATION OF NEGATIVE DRESSING TO BOLSTER RIGHT ARM GRAFT WITH BACTROBAN AND XEROFORM, COVERING WITH BLACK FOAM @ 120 MMHG CONTINUOUS SETTING. DRESSING IS TO REMAIN INTACT FOR 1 WEEK, UNTIL FIRST CHANGE NURSING TO SECURE NEGATIVE PRESSURE UNIT. TOMASZ 20 ON CONSERVATIVE PUP STATUS AND INTERVENTIONS SURFACE: ALTERNATIVE PRESSURE MATTRESS. LABS: WBC- 10.24 HGB- 9.1 ALBUMIN- 2.3 BLOOD CULTURE: NO GROWTH. NEGATIVE PRESSURE THERAPY IS AT 120MMGH CONTINUOUS SETTING AND DRAINING SEROSANGUINEOUS DRAINAGE TO CONNECTED CANISTER. NO LEAKS OR MALFUNCTIONS NOTED AT THIS TIME. NURSING INSTRUCTED TO MONITOR NEGATIVE PRESSURE THERAPY. RECOMMENDATIONS NURSING TO MONITOR NEGATIVE PRESSURE THERAPY/ NOTIFY MD AND WOUND CARE IF UNABLE TO MAINTAIN A CLOSE CIRCUIT. NURSING TO MAINTAIN CONSERVATIVE PUP STATUS AND INTERVENTIONS. NURSING TO CONTINUE TO MONITOR PATIENT AND KEEP SKIN CLEAN AND FREE FROM STOOL OR IRRITATING MOISTURE AND CONTINUE TO FOLLOW CONSERVATIVE PUP INTERVENTIONS DAILY. NURSING TO ENCOURAGE PT TO SELF REPOSITION IN BED NEEDED. NURSING TO CONTINUE WITH REGULAR VISCO MATTRESS. NURSING TO CONTINUE TO OFFLOAD FEET AND HEELS AT ALL TIMES WITH PILLOW SUSPENSION WHEN IN BED. NURSING TO ASSIST PT OUT OF BED FOR MEALS AND NEEDED. NURSING TO CONTINUE TO ASSIST WITH PT NUTRITIONAL SUPPLEMENTS TO ENSURE PROPER REQUIREMENTS FOR HEALING. NURSING TO RE- CONSULT WOUND CARE NEEDED. Addendum: 03/06/20 at 1654 by Nancy Whyte RN Amended: Links added.
[2020-03-06] MEDS: CLINDAMYCIN HCL 150 MG CAP PO SCH (17:07)
--- NOTE | 2020-03-06 18:40 | Progress Note ---
DATE: Cardiology Progress Note SUBJECTIVE: The patient feels well. Denies any chest pain or shortness of breath. OBJECTIVE: VITAL SIGNS: Temperature is 97.7, heart rate is 75, respirations are 20, blood pressure is 116/83, and oxygen saturation 100% on room air. GENERAL: She is a chronically ill-appearing woman, in no apparent distress. CARDIOVASCULAR: Regular rate and rhythm. LUNGS: Diminished breath sounds at the bases. ABDOMEN: Soft, obese, nontender. EXTREMITIES: Trace edema. CARDIOVASCULAR MEDICATIONS: Reviewed which include metoprolol tartrate. LABORATORY DATA: Reviewed. TELEMETRY: Monitoring was reviewed by myself and shows normal sinus rhythm with occasional premature atrial complexes and premature ventricular complexes. IMPRESSION: 1. Soft tissue mass, status post surgery. 2. Hypertension. 3. Diabetes mellitus. 4. Premature atrial complexes and premature ventricular complexes. 5. Chronic kidney disease. RECOMMENDATIONS: Continue metoprolol tartrate b.i.d. for rate and rhythm control. Echocardiogram showed normal left ventricular systolic function. Keep electrolytes at normal values. The patient is stable from a cardiovascular standpoint for discharge. Please call back with any further questions. Robert iRvera DO BM/MODL /[id number]
--- NOTE | 2020-03-06 19:07 | NUR ---
RECEIVED REPORT FROM PREVIOUS NURSE. CALL LIGHT WITHIN REACH. PATIENT IN BED.
--- NOTE | 2020-03-06 22:00 | NUR ---
dressing on left thigh changed
[2020-03-07] VITALS (8 sets, daily range): BP systolic 126–183; BP diastolic 70–91
[2020-03-07] MEDS: CLINDAMYCIN HCL 150 MG CAP PO SCH ×5 (00:37→23:43)
--- NOTE | 2020-03-07 07:12 | NUR ---
HOURLY ROUNDING PERFORMED. PATIENT IN BED. GAVE REPORT TO ONCOMING NURSE. CALL LIGHT WITHIN REACH.
[2020-03-07] MEDS: INSULIN REGULAR, HUMAN 100 UNIT/1 ML 3ML VIAL SQ SCH ×4 (07:30→20:03)
--- NOTE | 2020-03-07 08:13 | Progress Note ---
DATE: SUBJECTIVE: A 54-year-old lady, in 2009, with history of diabetes mellitus with multiple peripheral complications. The patient came in with right elbow abscess and cellulitis, status post surgery and with nonclosure of the wound. Plastics are consulted. The patient had a graft with wound vac in place, essentially feeling edematous according to the patient. No chest pain. No shortness of breath. No nausea, no vomiting. No diarrhea. Otherwise, the patient is comfortable. OBJECTIVE: VITAL SIGNS: Temperature is 98.1, pulse is 78, respirations of 18, blood pressure is 143/70, pulse oximetry of 97%. HEENT: Normocephalic, atraumatic. The patient is legally blind. CVS: S1 and S2 normal. Regular rate and rhythm. ABDOMEN: Soft, nontender. EXTREMITIES: Right upper extremities in wound VAC. Lower extremities, positive for trace edema. SKIN: Changes of dryness and ichthyosis. LABORATORY VALUES: The patient's white count is 10.24 down from 17,000 yesterday, hemoglobin of 9.1, hematocrit of 28.9, platelet count is 251. Chemistries show sodium of 135, potassium of 5.0, BUN of 41, creatinine of 1.87, glucose is running in the 190s, 250s, total protein of 5.6, ALT and AST normal. Coags are normal. Serology coronavirus is not detected. Blood cultures are normal. ASSESSMENT: Ms. Jessica Cunningham with: 1. Right elbow surgery, status post skin graft for non-closure of the wound. 2. Hypertension. 3. Uncontrolled diabetes mellitus. 4. Chronic kidney disease, stage 3. PLAN: 1. Continue with current medication. Currently, the patient is on clindamycin for antibiotic coverage. 2. Continue with metoprolol for rate control and also for the PACs, hydralazine as needed. The patient is on an insulin sliding scale for her diabetes. Further recommendation per clinical course. We will continue to monitor the patient. MD SONYA McbrideJ/MODL /[id number]
[2020-03-07] MEDS: METOPROLOL TARTRATE 25 MG TAB PO SCH ×2 (09:25→17:06)
[2020-03-07] MEDS: HYDROCODONE/APAP 5MG-325MG TAB PO PRN (09:25)
--- NOTE | 2020-03-07 19:02 | NUR ---
WALKING ROUNDS PERFORMED, RECEIVED PT LAYING SEMI FOWLERS IN BED, AAOX3, RR EVEN AND NON-LABORED, ON ROOM AIR. NO S/SX OF DISTRESS NOTED. MARK DRAIN EMPTIED. DRESSING TO (R) ELBOW NOTED TO BE CDI WITH WOUND VAC IN PLACE SET TO 120MMHG. LEFT PT LAYING SEMI FOWLERS IN BED, BED IN LOW LOCKED POSITION, SIDE RAILS UPX2, CALL LIGHT AND PHONE WITHIN REACH.
[2020-03-08] VITALS (8 sets, daily range): BP systolic 126–176; BP diastolic 73–94
[2020-03-08] MEDS: CLINDAMYCIN HCL 150 MG CAP PO SCH ×4 (05:34→23:49)
[2020-03-08 05:45] LABS: BASOPHILS # (AUTO) 0.1 (0.0-0.1); BASOPHILS % 0.7 % (0.0-1.0); EOSINOPHILS # (AUTO) 0.4 (0.0-0.4); EOSINOPHILS % 2.7 % (0.0-6.0); HEMATOCRIT 31.3 % (34.2-44.1); HEMOGLOBIN 9.8 g/dL (12.0-16.0); MEAN CORPUSCULAR HEMOGLOBIN 27.8 pg (28-32); MEAN CORPUSCULAR HGB CONC 31.3 g/dL (31-35); MEAN CORPUSCULAR VOLUME 88.9 fL (81-99); MONOCYTES # (AUTO) 0.7 (0.2-0.8); MONOCYTES % 4.8 % (4.4-11.3); NEUTROPHILS # (AUTO) 10.6 (2.1-6.9); NEUTROPHILS % 70.7 % (38.7-80.0); PLATELET COUNT 379 x10e3/uL (140-360); RED BLOOD COUNT 3.52 x10e6/uL (3.6-5.1); RED CELL DISTRIBUTION WIDTH 14.6 % (11.7-14.4)
[2020-03-08 06:03] LABS: ANION GAP 12.3 mmol/L (8-16); CALCIUM 9.5 mg/dL (8.4-10.2); CREATININE, SERUM 2.12 mg/dL (0.57-1.11); POTASSIUM 5.3 mmol/L (3.5-5.1)
[2020-03-08] MEDS: HYDROCODONE/APAP 5MG-325MG TAB PO PRN (08:40)
[2020-03-08] MEDS: METOPROLOL TARTRATE 25 MG TAB PO SCH ×2 (08:40→17:14)
--- NOTE | 2020-03-08 09:46 | Progress Note ---
DATE: SUBJECTIVE: The patient is a 54-year-old female with right elbow washout with lesion removal, with nonclosure of the wound. The patient is status post skin graft taken from the thigh and the patient is doing well. Had a mishap yesterday, accidentally, the patient had mechanical trauma to the area of the graft. Pain is reduced. The patient also complains of some swelling of that area. OBJECTIVE: VITAL SIGNS: Temperature is 98.3, pulse of 80, respirations of 18, blood pressure is 151/76, and pulse oximetry of 98%. HEENT: Normocephalic and atraumatic. The patient is blind. SKIN: With psoriatic patches all over the place and also ichthyosis. CVS: S1 and S2 normal. Regular rate and rhythm. ABDOMEN: Soft, nontender, and nondistended. EXTREMITIES: Right upper extremity and bandaged and also wound VAC in place. Lower extremities positive for edema and graft site in the thigh, which is dry and no oozing of skin. LABORATORY VALUES: Today's white count is 15,000, hemoglobin 9.1, hematocrit of 31.3. Left shift is not present. Chemistry shows sodium 136, potassium 5.3, BUN of 48 and creatinine of 2.12. Glucoses are running in the 160 to 230s. ASSESSMENT: Ms. Jessica Cunningham with: 1. Right elbow mass, status post surgery x2, one for removing and one for closure. 2. Hypertension. 3. Acute renal failure. 4. Uncontrolled diabetes mellitus. PLAN: Continue metoprolol for rate control. The patient is on clindamycin for antibiotic coverage. Renal function is worsening and Nephrology is on the case. We will continue serial chemistries, might need potassium binders for hyperkalemia. The patient is currently on hydralazine for blood pressure control. Further recommendation per clinical course. We will continue to monitor the patient and do lab work in the morning. MD SONYA McbrideJ/MODL /[id number]
[2020-03-08] MEDS: INSULIN REGULAR, HUMAN 100 UNIT/1 ML 3ML VIAL SQ SCH ×4 (09:54→21:13)
--- NOTE | 2020-03-08 18:54 | NUR ---
WALKING ROUNDS PERFORMED, RECEIVED PT LAYING SEMI FOWLERS IN BED, AAOX3, RR EVEN AND NON-LABORED, ON ROOM AIR. NO S/SX OF DISTRESS NOTED. DRESSING TO (R) SIDE AND (L) THIGH NOTED TO BE CDI. MARK DRAIN TO BULB SUCTION INTACT. (R) ELBOW TO WOUND VAC AT 120MMHG NOTED TO BE INTACT. LEFT PT LAYING SEMI FOWLERS IN BED, BED IN LOW LOCKED POSITION, SIDE RAILS UPX3, CALL LIGHT AND PHONE WITHIN REACH.
--- NOTE | 2020-03-08 19:00 | NUR ---
WALKING ROUNDS COMPLETE, PT STABLE AT SHIFT CHANGE
[2020-03-09] VITALS (8 sets, daily range): BP systolic 105–159; BP diastolic 76–94
--- NOTE | 2020-03-09 01:24 | Progress Note ---
DATE: 03/08/2020 Cardiology Progress Note SUBJECTIVE: No events overnight. OBJECTIVE: VITAL SIGNS: Temperature afebrile, pulse 75, respiratory rate 20, blood pressure 116/83, and saturating 100% on room air. GENERAL: Chronically ill-appearing, no apparent distress. CARDIOVASCULAR: Regular rate and rhythm. No murmurs, rubs, or gallops. LUNGS: Clear to auscultation bilaterally. ABDOMEN: Soft, nontender, and distended. NEURO AND PSYCH: Alert and oriented to person, place and time. Normal affect. INPATIENT MEDICATIONS: Reviewed. LABORATORY DATA: Reviewed. Telemetry monitoring shows normal sinus rhythm with occasional PACs. ASSESSMENT AND PLAN: 1. Soft tissue mass, status post surgery. 2. Hypertension. 3. Diabetes. 4. PACs and PVCs. 5. Chronic kidney disease. RECOMMENDATION: Continue metoprolol, seems to be working to reduce the amount of PACs and PVCs. Echocardiogram shows normal LV function. No further cardiovascular workup needed. Thank you for this consult. We will continue to follow. MD WANG Corcoran/EDWIGE /[id number]
[2020-03-09 05:08] LABS: BASOPHILS # (AUTO) 0.1 (0.0-0.1); BASOPHILS % 0.6 % (0.0-1.0); EOSINOPHILS # (AUTO) 0.5 (0.0-0.4); EOSINOPHILS % 3.2 % (0.0-6.0); HEMATOCRIT 31.3 % (34.2-44.1); HEMOGLOBIN 9.9 g/dL (12.0-16.0); LYMPHOCYTES % 17.8 % (18.0-39.1); MEAN CORPUSCULAR HEMOGLOBIN 28.7 pg (28-32); MEAN CORPUSCULAR HGB CONC 31.6 g/dL (31-35); MEAN CORPUSCULAR VOLUME 90.7 fL (81-99); MONOCYTES # (AUTO) 0.8 (0.2-0.8); MONOCYTES % 4.8 % (4.4-11.3); NEUTROPHILS # (AUTO) 12.1 (2.1-6.9); NEUTROPHILS % 72.5 % (38.7-80.0); PLATELET COUNT 384 x10e3/uL (140-360); RED BLOOD COUNT 3.45 x10e6/uL (3.6-5.1); RED CELL DISTRIBUTION WIDTH 14.6 % (11.7-14.4)
[2020-03-09 05:45] LABS: ALBUMIN 2.6 g/dL (3.5-5.0); ALBUMIN/GLOBULIN RATIO 0.7 (0.8-2.0); ANION GAP 12.6 mmol/L (8-16); CALCIUM 9.3 mg/dL (8.4-10.2); CREATININE, SERUM 2.2 mg/dL (0.57-1.11); MAGNESIUM 1.5 MG/DL (1.3-2.1); POTASSIUM 5.6 mmol/L (3.5-5.1)
[2020-03-09] MEDS: CLINDAMYCIN 600MG / 50ML 50 ML IV SCH ×3 (05:53→17:37)
[2020-03-09] MEDS: HYDROCODONE/APAP 5MG-325MG TAB PO PRN (06:22)
--- NOTE | 2020-03-09 06:27 | NUR ---
MD VALENZUELA AT BEDSIDE TO DISCONTINUE MARK DRAIN. STERILE DRESSING APPLIED BY .
[2020-03-09] MEDS: INSULIN REGULAR, HUMAN 100 UNIT/1 ML 3ML VIAL SQ SCH ×4 (07:30→21:09)
[2020-03-09] MEDS: METOPROLOL TARTRATE 25 MG TAB PO SCH ×2 (08:22→17:38)
--- NOTE | 2020-03-09 11:40 | NUR ---
Notified Dr. Nathan Brady about the potassium of 5.6.
[2020-03-09] MEDS ORDERED: LACTULOSE SYRUP 20 GM/30 ML UDC PO ONE (11:45)
[2020-03-09] MEDS ORDERED: SOD POLYSTYRENE SULFONATE SUSP 15 GM/60 ML BTL PO ONE (11:45)
--- NOTE | 2020-03-09 13:19 | NUR ---
SHANDRA asked Dr. Chavez about dc plan for pt. He states pt is "thinking about it." CM to pt's bedside. Discussed pt's goals for dc. Pt states that she would like to go home, but at this time feels like she may not be able to handle getting around with the wound vac. Also does not know if she would be able to get transportation to follow up at wound clinic outpatient. States usually gets transportation thru insurance but they don't always show up. Pt wants to speak to her family and Dr. Chavez tomorrow morning prior to making a decision. CM or SW will follow up tomorrow.
--- NOTE | 2020-03-09 15:37 | NUR ---
WOUND CARE TEAM CHECKED THAT RIGHT ELBOW WOUND VAC WAS INTACT TO SKIN GRAFT AT 120mmHg CONTINUOUS SUCTION; WOUND VAC WILL NEED TO BE CHANGED TOMORROW, 1 WEEK POST OP PER ORDERS. PATIENT INSTRUCTED TO NOTIFY NURSING AND WOUND CARE IF WOUND VAC LOOSES SUCTION OR STARTS TO LEAK. PATIENT VERBALIZED UNDERSTANDING. Addendum: 03/09/20 at 1545 by Chayo Olson RN Amended: Links added.
--- NOTE | 2020-03-09 16:17 | Progress Note ---
DATE: 03/09/2020 Cardiology Progress Note SUBJECTIVE: The patient denies chest pain or shortness of breath. OBJECTIVE: VITAL SIGNS: Temperature 98 degrees, pulse 68, respiratory rate 19, blood pressure 130/80, and oxygen saturation 95% on room air. GENERAL: Chronically ill-appearing woman, no acute distress. Awake and alert. LUNGS: Clear to auscultation bilaterally. No wheezes or crackles. CARDIOVASCULAR: Normal rate. Regular rhythm. No murmur. Normal S1, S2. ABDOMEN: Soft, nontender. EXTREMITIES: No edema. Dressing present on the right elbow. CARDIAC MEDICATIONS: Metoprolol tartrate 50 mg p.o. b.i.d. LABORATORY DATA: WBC 16.61, hemoglobin 9.9, hematocrit 31.3, and platelets 384. Sodium 136, potassium 5.6, chloride 106, CO2 of 23, BUN 45, and creatinine 2.2. TELEMETRY: Personally reviewed and interpreted revealing normal sinus rhythm with PVCs. IMPRESSION: 1. Right elbow mass, status post surgical resection. 2. Hypertension. 3. Premature atrial contractions and premature ventricular contractions. 4. Diabetes mellitus. 5. Chronic kidney disease. RECOMMENDATIONS: Continue metoprolol. Monitor the patient on telemetry. Echocardiogram showed normal LV systolic function and TSH was within normal range. No further cardiac evaluation is indicated at this time. Thank you for this consult. We will continue to follow. Beatriz Ryan MD ABS/MODL /[id number]
--- NOTE | 2020-03-09 21:00 | NUR ---
Patient refused bed alarm on. Patient wants to use the bedside commode by herself and refused help.
[2020-03-10] MEDS: CLINDAMYCIN 600MG / 50ML 50 ML IV SCH ×3 (00:35→11:47)
[2020-03-10 00:59] VITALS: BP 137/85
[2020-03-10 05:13] VITALS: BP 142/82
[2020-03-10 05:30] LABS: BASOPHILS # (AUTO) 0.1 (0.0-0.1); BASOPHILS % 0.6 % (0.0-1.0); EOSINOPHILS # (AUTO) 0.5 (0.0-0.4); EOSINOPHILS % 4.3 % (0.0-6.0); HEMOGLOBIN 8.7 g/dL (12.0-16.0); LYMPHOCYTES # (AUTO) 2.3 (1.0-3.2); LYMPHOCYTES % 19.8 % (18.0-39.1); MEAN CORPUSCULAR HEMOGLOBIN 28.2 pg (28-32); MEAN CORPUSCULAR HGB CONC 31.1 g/dL (31-35); MEAN CORPUSCULAR VOLUME 90.9 fL (81-99); MONOCYTES # (AUTO) 0.7 (0.2-0.8); MONOCYTES % 6.1 % (4.4-11.3); NEUTROPHILS # (AUTO) 7.7 (2.1-6.9); NEUTROPHILS % 67.9 % (38.7-80.0); PLATELET COUNT 281 x10e3/uL (140-360); RED BLOOD COUNT 3.08 x10e6/uL (3.6-5.1); RED CELL DISTRIBUTION WIDTH 14.9 % (11.7-14.4)
[2020-03-10 05:50] LABS: ALBUMIN 2.4 g/dL (3.5-5.0); ALBUMIN/GLOBULIN RATIO 0.8 (0.8-2.0); ANION GAP 13.8 mmol/L (8-16); CALCIUM 8.7 mg/dL (8.4-10.2); CREATININE, SERUM 2.13 mg/dL (0.57-1.11); POTASSIUM 4.8 mmol/L (3.5-5.1)
[2020-03-10] MEDS: INSULIN REGULAR, HUMAN 100 UNIT/1 ML 3ML VIAL SQ SCH ×2 (07:30→11:30)
[2020-03-10] MEDS: METOPROLOL TARTRATE 25 MG TAB PO SCH (07:56)
[2020-03-10 08:10] VITALS: BP 121/91
--- NOTE | 2020-03-10 08:22 | NUR ---
SIGNED CHOICE FOR [facility], COMPLETED PASRR AND RTF AND PUT WITH PACKET AT NURSES STATION AND FAXED CLINICALS.
[2020-03-10 08:56] VITALS: BP 121/91
--- NOTE | 2020-03-10 10:15 | NUR ---
Spoke with Dr. Jerome and notified about patient's transfer to SNF and says that to tell the patient to follow-up in 2 weeks for chemotherapy.
--- NOTE | 2020-03-10 10:35 | NUR ---
Pt. expressed no spiritual or emotional concerns at this time. Senior Ios Developer provided hospitality and instructions on how to contact a dowel inspector if needed. No need to follow at this time. DANNI WADE Senior Ios Developer Spiritual Care Department O: [phone]
[2020-03-10] MEDS: HYDROCODONE/APAP 5MG-325MG TAB PO PRN (11:47)
[2020-03-10 11:57] VITALS: BP 139/82
--- NOTE | 2020-03-10 13:27 | NUR ---
NEGATIVE PRESSURE DRESSING CHANGED PER MD ORDERS GRAFT AND ANEUDY INTACT WOUNDBED PINK NO SSX OF INFECTION OR DRAINAGE NOTED REPORTED PER NURSING PATIENT PLAN IS DISCHARGE TO SKILLED FACILITY TO CONTINUE CARE DR MENJIVAR ORDER FOR DISCHARE DRESSING TAKEN BY READBACK TELEPHONE ORDER AND WILL BE PLACED IN PATIENT ORDERS Addendum: 03/10/20 at 1340 by Douglas Hebert RN Amended: Links added.
--- NOTE | 2020-03-10 13:55 | NUR ---
Notified Dr. Chavez that patient is all set up for SNF transfer. Verbal order given to D/C patient.
--- NOTE | 2020-03-10 14:55 | NUR ---
Report given to TOVA Singh at transferring facility [facility].
--- NOTE | 2020-03-10 14:55 | NUR ---
Transported patient via stretcher to ambulance. All personal belongings taken.
[2020-03-10 16:00] VITALS: BP 133/80
--- NOTE | 2020-03-10 17:37 | Progress Note ---
DATE: 03/10/2020 Cardiology Progress Note SUBJECTIVE: The patient denies chest pain or shortness of breath. OBJECTIVE: VITAL SIGNS: Temperature 97.9 degrees, pulse 58, respiratory rate 20, blood pressure 139/82, and oxygen saturation 100% on room air. GENERAL: Chronically ill-appearing woman, in no acute distress. Awake and alert. LUNGS: Clear to auscultation bilaterally. No wheeze or crackles. CARDIOVASCULAR : Normal rate. Regular rhythm. No murmur. Normal S1 and S2. ABDOMEN: Soft, nontender. EXTREMITIES : No edema. Dressing present on the right elbow. CARDIAC MEDICATIONS: Metoprolol 50 mg p.o. b.i.d. LABORATORY DATA: WBC 11.35, hemoglobin 8.7, hematocrit 28, platelets 281. Sodium 139, potassium 4.8, chloride 108, CO2 of 22, BUN 47, and creatinine 2.13. TELEMETRY: Personally reviewed and interpreted, revealing normal sinus rhythm. IMPRESSION: 1. Right elbow mass, status post surgical resection. 2. Hypertension. 3. PACs and PVCs. 4. Diabetes mellitus. 5. Chronic kidney disease. RECOMMENDATIONS: Continue metoprolol. Monitor the patient on telemetry while admitted. Echocardiogram showed normal LV systolic function. TSH was within normal range. No further cardiac evaluation is indicated at this time. Thank you for this consult. We will continue to follow. Beatriz Ryan MD ABS/MODL /[id number]
== END 2020-03-10 16:22 | DRG 464 ==
LOC: ER 20:04 → ERHOLD 23:52 → MED/SURG2 02-28 13:42 → OBSVTOIN 02-29 08:07
PROVIDERS: ADMIT Internal Medicine; ATTEND Internal Medicine
PROC: 0JH60WZ Insertion of Totally Implantable Vascular Access Device into Chest Subcutaneous Tissue and Fascia, Open Approach (ICD-10-PCS; 2020-03-03)
PROC: 0HRDX74 Replacement of Right Lower Arm Skin with Autologous Tissue Substitute, Partial Thickness, External Approach (ICD-10-PCS; 2020-03-03)
PROC: 05H633Z Insertion of Infusion Device into Left Subclavian Vein, Percutaneous Approach (ICD-10-PCS; 2020-03-03)
PROC: B5171ZA Fluoroscopy of Left Subclavian Vein using Low Osmolar Contrast, Guidance (ICD-10-PCS; 2020-03-03)
PROC: 0HBJXZZ Excision of Left Upper Leg Skin, External Approach (ICD-10-PCS; 2020-03-03)
PROC: 07B50ZX Excision of Right Axillary Lymphatic, Open Approach, Diagnostic (ICD-10-PCS; principal; 2020-03-03 10:00)
PROC: 0JBG0ZZ Excision of Right Lower Arm Subcutaneous Tissue and Fascia, Open Approach (ICD-10-PCS; 2020-03-03 10:00)
PROC: 0JB60ZZ Excision of Chest Subcutaneous Tissue and Fascia, Open Approach (ICD-10-PCS; 2020-03-03 10:00)
DX: C49.3 Malignant neoplasm of connective and soft tissue of thorax (principal); C77.3 Secondary and unspecified malignant neoplasm of axilla and upper limb lymph nodes; L03.113 Cellulitis of right upper limb; N18.4 Chronic kidney disease, stage 4 (severe); N17.9 Acute kidney failure, unspecified; E87.6 Hypokalemia; E83.52 Hypercalcemia; E11.42 Type 2 diabetes mellitus with diabetic polyneuropathy; E11.22 Type 2 diabetes mellitus with diabetic chronic kidney disease; I12.9 Hypertensive chronic kidney disease with stage 1 through stage 4 chronic kidney disease, or unspecified chronic kidney disease; H54.7 Unspecified visual loss; Z88.1 Allergy status to other antibiotic agents; Z91.041 Radiographic dye allergy status; Z91.013 Allergy to seafood; Z88.8 Allergy status to other drugs, medicaments and biological substances; Z91.018 Allergy to other foods; Z96.642 Presence of left artificial hip joint; Z85.820 Personal history of malignant melanoma of skin; E11.21 Type 2 diabetes mellitus with diabetic nephropathy; I49.1 Atrial premature depolarization; Z79.84 Long term (current) use of oral hypoglycemic drugs
CPT/HCPCS: 36415; 70450; 71045; 71250; 74176; 76770; 77001; 80048; 80053; 82948; 83735; 83970; 84443; 85025; 85610; 85730; 86850; 86900; 87040; 87635; 88304; 88305; 88307; 88309; 88331; 88333; 88342; 93005; 93306; 97605; 99251; 99285; C1751; G0378; J0360; J0610; J1100; J1644; J1817; J1956; J2001; J2250; J2270; J2370; J2405; J3010; J3370; J7030; J7050; J7799; Q0162

== ENCOUNTER 2020-05-26 19:18 | Inpatient (IN) | payer MEDICARE, OTHER ==
[~2020-05-26] VITALS: Ht 152.4 cm; Wt 80.9 kg
[~2020-05-26 19:18] MED LIST changes: +MEROPENEM 500MG 500 MG in SODIUM CHLORIDE 0.9% 50ML 50 ML IV SCH; +PREMARIN0.3 MG PO
[2020-05-26] MEDS ORDERED: MEROPENEM 1GM 100 ML IV ONE (19:30)
--- NOTE | 2020-05-26 19:35 | Emergency Department Note ---
History of Present Illnes History of Present Illness Chief Complaint: General Medicine Complaints History of Present Illness This is a 55 year old female Patient sent over from [facility] for abnormal labs of sodium of 128, K+ of 5.8 and WBC of 23.2. Patient also c/o weakness. No distress noted at this time. PT REPORTS SHE HAS BEEN ON [facility] FOR A UTI. STATES LAST DOSE YESTERDAY EVENING, PT DENIES COUGH, SOB, N/V/D. PT HAS HAD A ELEVATED WBC AND LOW SODIUM ON LABS FOR PAST COUPLE OF WEEKS PER [facility] RECORDS. 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 Arrival Mode: [facility] Required: No Onset (how long ago): day(s) (7) Location: ALL OVER Quality: WEAKNESS Radiation: Reports non-radiation Severity: moderate Onset quality: gradual Duration (how long): day(s) (6) Timing of current episode: constant Progression: worsening Chronicity: new Context: Reports recent illness (PT REPORTS SHE IS BEING TREATED FOR A UTI AT THE [facility]); Denies recent surgery, Denies trauma/injury Relieving factors: none Exacerbating factors: none Associated symptoms: Reports denies other symptoms Treatments prior to arrival: other (PT HAS BEEN ON CIPOR FOR UTI, LAST DOES YESTERDAY EVENING) Past Medical/Family History Physician Review I have reviewed the patient's past medical and family history. Any updates have been documented here. Past Medical History Recent Fever: No Clinical Suspicion of Infectio: No New/Unexplained Change in Ment: No Past Medical History: Hypertension, Diabetes, Hypothyroidism, Cancer, Anxiety, Chronic Kidney Disease Other Medical History: BLIND GOUT MELANOMA Abscess of bursa Past Surgical History: Cholecysctectomy, Appendectomy, Hysterectomy, Hip Replacement Other Surgery: LEFT KNEE L HIP REPLACEMENT BACK L ARM RT ARM MELANOMA REMOVAL 2019 Social History Smoking Cessation: Never Smoker Alcohol Use: None Any Illegal Drug Use: No Family History Family history of heart diseas: No Other family history HTN,DM Other Last Tetanus: UTD Review of Systems Review of Systems Constitutional: Reports weakness EENTM: Reports no symptoms Cardiovascular: Reports no symptoms Respiratory: Reports no symptoms Gastrointestinal: Reports no symptoms Genitourinary: Reports no symptoms Musculoskeletal: Reports no symptoms Integumentary: Reports no symptoms Neurological: Reports no symptoms Psychological: Reports no symptoms Endocrine: Reports no symptoms Hematological/Lymphatic: Reports no symptoms Physical Exam Related Data Allergies: Coded Allergies: shellfish derived (Unverified Allergy, Intermediate, nausea, 03/05/20) increased heart rate tomato (Verified Allergy, Intermediate, rash, 10/09/13) Cephalexin Monohydrate (Verified Allergy, Mild, RASH, 05/28/12) meperidine HCl (Verified Allergy, Mild, MOUTH/TONGUE NUMBNESS, 05/28/12) iodine (Verified Allergy, Unknown, 04/09/19) pioglitazone (Verified Allergy, Unknown, 04/09/19) Uncoded Allergies: JULIO PEPPERS (Allergy, Intermediate, rash, 03/05/20) coconut (Allergy, Intermediate, Rash, 10/09/13) cucumber (Allergy, Intermediate, Rash, 10/09/13) Triage Vital Signs Vital Signs Date Time Temp Pulse Resp B/P (MAP) Pulse Ox O2 Delivery O2 Flow Rate FiO2 05/26/20 19:25 98.2 112 20 111/82 99 Room Air Vital signs reviewed: Yes Physical Exam CONSTITUTIONAL Constitutional: Present well-developed, Present well-nourished; Absent distressed, Absent ill appearing HENT HENT: Present normocephalic, Present atraumatic, Present mucosae dry, Present nose normal HENT L/R: Present left ext ear normal, Present right ext ear normal EYES Eyes: Reports PERRL, Reports conjunctivae normal NECK Neck: Present ROM normal PULMONARY Pulmonary: Present effort normal, Present other (DECREASED BREATH SOUNDS AT BASED BILATERAL) CARDIOVASCULAR Cardiovascular: Present regular rhythm, Present heart sounds normal, Present capillary refill normal, Present tachycardia (110) GASTROINTESTINAL Abdominal: Present soft, Present nontender, Present bowel sounds normal GENITOURINARY Genitourinary: Present exam deferred SKIN Skin: Present warm, Present dry MUSCULOSKELETAL Musculoskeletal: Present ROM normal NEUROLOGICAL Neurological: Present alert, Present oriented x 3, Present no gross motor or sensory deficits PSYCHOLOGICAL Psychological: Present mood/affect normal, Present judgement normal Results Laboratory Laboratory Laboratory Tests Test 05/26/20 21:47 05/26/20 20:55 05/26/20 19:50 05/26/20 19:48 Lactic Acid Level 1.5 mmol/L (0.5-2.0) 2.2 mmol/L (0.5-2.0) Coronavirus (PCR) Not detected (NOTDETECTED) Urine Color Yellow (YELLOW) Urine Clarity Sl cloudy (CLEAR) Urine pH 5 (5 - 7) Urine Specific Rhodell 1.015 (1.010-1.025) Urine Protein 2+ (NEGATIVE) Urine Glucose (UA) Negative (NEGATIVE) Urine Ketones Negative (NEGATIVE) Urine Blood Negative (NEGATIVE) Urine Nitrite Negative (NEGATIVE) Urine Bilirubin Negative (NEGATIVE) Urine Urobilinogen 0.2 mg/dL (0.2 - 1) Urine Leukocyte Esterase Small (NEGATIVE) Urine RBC None /HPF (0-5) Urine WBC 0-5 /HPF (0-5) Urine Epithelial Cells None /LPF (NONE) Urine Amorphous Sediment Many (FEW) Urine Bacteria Moderate /HPF (NONE) Test 05/26/20 19:28 White Blood Count 23.61 x10e3/uL (4.8-10.8) Red Blood Count 3.03 x10e6/uL (3.6-5.1) Hemoglobin 8.1 g/dL (12.0-16.0) Hematocrit 25.9 % (34.2-44.1) Mean Corpuscular Volume 85.5 fL (81-99) Mean Corpuscular Hemoglobin 26.7 pg (28-32) Mean Corpuscular Hemoglobin Concent 31.3 g/dL (31-35) Red Cell Distribution Width 17.0 % (11.7-14.4) Platelet Count 491 x10e3/uL (140-360) Neutrophils (%) (Auto) 87.4 % (38.7-80.0) Lymphocytes (%) (Auto) 4.9 % (18.0-39.1) Monocytes (%) (Auto) 5.1 % (4.4-11.3) Eosinophils (%) (Auto) 0.6 % (0.0-6.0) Basophils (%) (Auto) 0.4 % (0.0-1.0) Neutrophils # (Auto) 20.6 (2.1-6.9) Lymphocytes # (Auto) 1.2 (1.0-3.2) Monocytes # (Auto) 1.2 (0.2-0.8) Eosinophils # (Auto) 0.1 (0.0-0.4) Basophils # (Auto) 0.1 (0.0-0.1) Absolute Immature Granulocyte (auto 0.38 x10e3/uL (0-0.1) Sodium Level 132 mmol/L (136-145) Potassium Level 5.2 mmol/L (3.5-5.1) Chloride Level 100 mmol/L (98-107) Carbon Dioxide Level 15 mmol/L (22-29) Anion Gap 22.2 mmol/L (8-16) Blood Urea Nitrogen 81 mg/dL (7-26) Creatinine 2.79 mg/dL (0.57-1.11) Estimat Glomerular Filtration Rate 18 ML/MIN (60-) BUN/Creatinine Ratio 29 (6-25) Glucose Level 102 mg/dL (74-118) Calcium Level 9.3 mg/dL (8.4-10.2) Total Bilirubin 0.4 mg/dL (0.2-1.2) Aspartate Amino Transf (AST/SGOT) 21 IU/L (5-34) Alanine Aminotransferase (ALT/SGPT) 9 IU/L (0-55) Alkaline Phosphatase 162 IU/L (40-150) Creatine Kinase 35 IU/L (29-168) Creatine Kinase MB 0.50 ng/mL (0-5.0) Troponin I 0.007 ng/mL (0-0.300) Total Protein 6.0 g/dL (6.5-8.1) Albumin 3.0 g/dL (3.5-5.0) Globulin 3.0 g/dL (2.3-3.5) Albumin/Globulin Ratio 1.0 (0.8-2.0) Lab results reviewed: Yes Imaging Imaging results reviewed: Yes Impressions Procedure: [id number] DX/CHEST SINGLE (PORTABLE) Exam Date: 05/26/20 Exam Time: 1950 REPORT STATUS: Signed EXAMINATION: CHEST SINGLE (PORTABLE) INDICATION: Weakness COMPARISON: CT of the chest on 02/28/2020 FINDINGS: TUBES and LINES: There is a left Port-A-Cath which terminates at the cavoatrial junction. There are multiple lines projected over the chest wall. LUNGS: The patient is rotated towards the left which limits optimal assessment. However there is hazy opacification of the left lung apex likely due to leftward shift of mediastinal structures. And prominent interstitial lung markings throughout. There is consolidative opacity at the left lung base. PLEURA: There is probable small left pleural effusion. No pneumothorax. HEART AND MEDIASTINUM: The cardiomediastinal silhouette is unremarkable. BONES AND SOFT TISSUES: No acute osseous lesion. There is benign-appearing chondroid lesion in the right humeral head. There are multiple surgical clips in the right axilla UPPER ABDOMEN: No free air under the diaphragm. IMPRESSION: 1. Limited examination due to rotated patient positioning. Recommend repeat examination with patient in more upright positioning. If examination remains the equivocal, consider chest CT. 2. Hazy opacification of the left lung apex is indeterminate but likely due to leftward shift of mediastinal structures. 3. Consolidative opacity at the left lung base which may be due to atelectasis or pneumonia in the proper clinical context. Signed by: Andre Wilson MD on 05/26/2020 8:43 PM Dictated By: ANDRE WILSON MD 42 Transcribed By: SADAF on 05/26/202042 COPY TO: PURNIMA HDZ MD~ VERBAL REPORT FROM DR ESCAMILLA OF CT CHEST NEW MASSES IN CHEST, LIVER AND UPPER ABD, NO EVIDENCE OF PNEUMONIA Procedures 12 Lead ECG Interpretation ECG Interpretation : ECG: ECG 1 [employer]: Interpreted by ED physician Date: May 26, 2020 Time: 19:24 Rhythm: sinus tachycardia Rate: tachycardia BPM: 111 QRS axis: normal ST segments normal: Yes T waves normal: Yes Other findings: no other findings Clinical Impression: non-specific ECG Assessment & Plan Medical Decision Making MDM PT FROM [facility] WITH C/O WEAKNESS AND ABNORMAL LABS OF WBC 23k, POTASSIUM 5.8 AND SODIUM OF 128 I REQUESTED A RECTAL TEMP ON PATIENT AND IT IS 100.4 CBC, CMP, UA, LACTIC ACID, BLOOD CULTURES, EKG, CARDIAC ENZYMES, CXR ORDERED TO EVAL FOR SEPSIS, UTI, PNEUMONIA, ELECTROLYTE ABNORMALITY, RENAL INSUFFICIENCY/FAILURE, MYOCARDIAL INFARCTION, MEROPENEM 1 GRAM IV ORDERED NS 1 LITER IV BOLUS ORDERED initial lactic acid 2.2 REPEAT LACTIC ACID 1.[address] dumont admit inpatient, Assessment & Plan Final Impression: (1) Leukocytosis (2) Sepsis (3) Weakness (4) Renal insufficiency (5) Hyperkalemia (6) Dehydration (7) Metastasis Depart Disposition: ADMITTED Last Vital Signs Date Time Temp Pulse Resp B/P (MAP) Pulse Ox O2 Delivery O2 Flow Rate FiO2 05/26/20 19:25 98.2 112 20 111/82 99 Room Air Home Meds Reported Medications Estrogens Conjugated (PREMARIN) 0.3 Mg Tab, 0.3 MG PO DAILY, #30 TAB 02/28/20 Glimepiride (AMARYL) 4 Mg Tablet, 4 MG PO BID 10/08/13 Allopurinol (Allopurinol) 300 Mg Tablet, 300 MG PO DAILY 05/31/12 Medications in the ED Sodium Chloride 1,000 ml @ 100 mls/hr Q10H IV ; Start 05/26/20 at 19:30; Stop 06/25/20 at 19:29; Status UNV Meropenem 100 ml @ 100 mls/hr ONCE ONCE IV ; Start 05/26/20 at 19:30; Stop 05/26/20 at 20:29; Status UNV PURNIMA HDZ MD May 26, 2020 19:35
[2020-05-26] MEDS: SODIUM CHLORIDE 0.9% 1000ML 1,000 ML IV SCH (19:41)
[2020-05-26] MEDS ORDERED: ACETAMINOPHEN 325 MG TAB PO NR (19:45)
[2020-05-26] MEDS ORDERED: ACETAMINOPHEN 325 MG TAB ONE (19:49)
[2020-05-26 19:50] LABS: BASOPHILS # (AUTO) 0.1 (0.0-0.1); BASOPHILS % 0.4 % (0.0-1.0); EOSINOPHILS # (AUTO) 0.1 (0.0-0.4); EOSINOPHILS % 0.6 % (0.0-6.0); HEMATOCRIT 25.9 % (34.2-44.1); HEMOGLOBIN 8.1 g/dL (12.0-16.0); LYMPHOCYTES # (AUTO) 1.2 (1.0-3.2); LYMPHOCYTES % 4.9 % (18.0-39.1); MEAN CORPUSCULAR HEMOGLOBIN 26.7 pg (28-32); MEAN CORPUSCULAR HGB CONC 31.3 g/dL (31-35); MEAN CORPUSCULAR VOLUME 85.5 fL (81-99); MONOCYTES # (AUTO) 1.2 (0.2-0.8); MONOCYTES % 5.1 % (4.4-11.3); NEUTROPHILS # (AUTO) 20.6 (2.1-6.9); NEUTROPHILS % 87.4 % (38.7-80.0); PLATELET COUNT 491 x10e3/uL (140-360); RED BLOOD COUNT 3.03 x10e6/uL (3.6-5.1)
[2020-05-26 20:04] LABS: ANION GAP 22.2 mmol/L (8-16); CALCIUM 9.3 mg/dL (8.4-10.2); CREATININE, SERUM 2.79 mg/dL (0.57-1.11)
[2020-05-26 20:05] LABS: POTASSIUM 5.2 mmol/L (3.5-5.1)
[2020-05-26 20:10] LABS: CREATINE KINASE MB 0.5 ng/mL (0-5.0)
[2020-05-26 20:12] LABS: BILIRUBIN,URINE NEGATIVE (NEGATIVE); CLARITY,URINE SL CLOUDY (CLEAR); COLOR,URINE YELLOW (YELLOW); KETONES,URINE NEGATIVE (NEGATIVE); LEUKOCYTE ESTERASE ,URINE SMALL (NEGATIVE); NITRITE,URINE NEGATIVE (NEGATIVE); PROTEIN,URINE DIPSTICK 2+ (NEGATIVE); URINE UROBILINOGEN 0.2 mg/dL (0.2 - 1)
[2020-05-26 20:24] LABS: AMORPHOUS SEDIMENT,URINE MANY (FEW); BACTERIA,URINE MODERATE /HPF; WBC,URINE (MAN) 0-5 /HPF (0-5)
--- NOTE | 2020-05-26 20:39 | NUR ---
lactic acid 2.2, to repeat lactic acid level after 1L of fluid per Dr. Mendes
--- NOTE | 2020-05-26 20:47 | Diagnostic Imaging Report ---
EXAMINATION: CHEST SINGLE (PORTABLE) INDICATION: Weakness COMPARISON: CT of the chest on 02/28/2020 FINDINGS: TUBES and LINES: There is a left Port-A-Cath which terminates at the cavoatrial junction. There are multiple lines projected over the chest wall. LUNGS: The patient is rotated towards the left which limits optimal assessment. However there is hazy opacification of the left lung apex likely due to leftward shift of mediastinal structures. And prominent interstitial lung markings throughout. There is consolidative opacity at the left lung base. PLEURA: There is probable small left pleural effusion. No pneumothorax. HEART AND MEDIASTINUM: The cardiomediastinal silhouette is unremarkable. BONES AND SOFT TISSUES: No acute osseous lesion. There is benign-appearing chondroid lesion in the right humeral head. There are multiple surgical clips in the right axilla UPPER ABDOMEN: No free air under the diaphragm. IMPRESSION: 1. Limited examination due to rotated patient positioning. Recommend repeat examination with patient in more upright positioning. If examination remains the equivocal, consider chest CT. 2. Hazy opacification of the left lung apex is indeterminate but likely due to leftward shift of mediastinal structures. 3. Consolidative opacity at the left lung base which may be due to atelectasis or pneumonia in the proper clinical context. Signed by: Andre Whitaker MD on 05/26/2020 8:43 PM
[2020-05-26] MEDS ORDERED: MEROPENEM 500MG 500 MG in SODIUM CHLORIDE 0.9% 50ML 50 ML IV SCH (23:00)
[2020-05-26] MEDS ORDERED: SODIUM CHLORIDE 0.9% 1000ML 1,000 ML IV ONE (23:00)
[2020-05-26] MEDS ORDERED: DEXTROSE 50% SYRINGE 50 ML IV PRN (23:00)
[2020-05-26] MEDS ORDERED: ONDANSETRON HCL INJ 2MG/ML 2ML 2 MG/ML VIAL IV PRN (23:00)
--- NOTE | 2020-05-26 23:00 | Diagnostic Imaging Report ---
EXAM: CT Chest WITHOUT contrast INDICATION: Weakness, left upper lung opacity on chest x-ray COMPARISON: Chest CT 02/28/2020 TECHNIQUE: Chest was scanned utilizing a multidetector helical scanner from the lung apex through the level of the adrenal glands without administration of IV contrast. Absence of intravenous contrast decreases sensitivity for detection of lymphadenopathy and vascular pathology. Coronal and sagittal reformations were obtained. Routine protocol was performed. IV CONTRAST: None COMPLICATIONS: None RADIATION DOSE: Total DLP: 550 mGy*cm Estimated effective dose: (DLP x 0.014 x size factor) mSv CTDIvol has been reviewed. It is below the limits set by the Radiation Protocol Committee (RPC). Dose modulation, iterative reconstruction, and/or weight based adjustment of the mA/kV was utilized to reduce the radiation dose to as low as reasonably achievable. FINDINGS: LINES/ TUBES: Left anterior chest subcutaneous port with left subclavian central venous catheter component, tip in the low SVC.. LUNGS AND AIRWAYS: Coarse reticular opacities in the left lower lung. Airways are normal. PLEURA: Small left pleural effusion with nodular left pleural thickening. HEART AND MEDIASTINUM: The thyroid gland is normal. Increased size of lower neck, upper mediastinal, and bilateral axillary lymph nodes. 02/28/2020, for example a 3.7 cm left upper mediastinal lymph node was not significantly enlarged previously. New 3 cm left supraclavicular lymph node. Increased size of a 3.8 cm lower posterior periaortic mediastinal lymph node abuts the aorta. Coronary artery calcifications. The heart is normal in size. There is no pericardial effusion. UPPER ABDOMEN: Multiple nodules and masses in the included upper abdomen, predominantly in the retroperitoneum, with a 4.1 cm left adrenal mass. Suspect a new 4.9 cm left hepatic metastasis. Decreased size of the 5.2 cm right retropectoral mass with associated surgical changes. BONES: New 4 cm expansile destructive mass in the posterior aspect of left rib 9. Stable focal sclerosis in the right humeral head. SOFT TISSUES: Multiple bilateral breast nodules. IMPRESSION: Marked progression of metastatic disease compared to 02/28/2020, with extensive bilateral lower cervical, axillary, and mediastinal metastatic adenopathy. New left hepatic metastasis. New left adrenal metastasis. Numerous new upper retroperitoneal metastasis. New left rib 9 metastasis. Suspect left pleural metastasis with trace left pleural effusion, likely malignant. Signed by: Garth March DO on 05/26/2020 10:57 PM
[2020-05-26 23:33] VITALS: BP 92/78
[2020-05-26 23:45] VITALS: BP 92/78
[2020-05-27] VITALS (8 sets, daily range): BP systolic 92–130; BP diastolic 64–82
[2020-05-27] MEDS: SODIUM CHLORIDE 0.9% 1000ML 1,000 ML IV SCH ×2 (00:13→20:41)
[2020-05-27] MEDS ORDERED: OMEPRAZOLE40 MG PO (00:19)
[2020-05-27] MEDS ORDERED: ULTRAM 50MG50 MG PO (00:19)
[2020-05-27] MEDS ORDERED: ZOFRAN4 MG PO (00:19)
[2020-05-27] MEDS ORDERED: NORCO 10-325 T1 EACH PO (00:19)
[2020-05-27] MEDS ORDERED: METOPROLOL TART50 MG PO (00:19)
[2020-05-27] MEDS ORDERED: LIDOCAINE1 EAC1 TOP (00:19)
[2020-05-27 06:27] LABS: BASOPHILS # (AUTO) 0.1 (0.0-0.1); BASOPHILS % 0.4 % (0.0-1.0); EOSINOPHILS # (AUTO) 0.1 (0.0-0.4); EOSINOPHILS % 0.6 % (0.0-6.0); HEMATOCRIT 24.4 % (34.2-44.1); HEMOGLOBIN 7.5 g/dL (12.0-16.0); LYMPHOCYTES # (AUTO) 0.8 (1.0-3.2); LYMPHOCYTES % 3.9 % (18.0-39.1); MEAN CORPUSCULAR HEMOGLOBIN 26.5 pg (28-32); MEAN CORPUSCULAR HGB CONC 30.7 g/dL (31-35); MEAN CORPUSCULAR VOLUME 86.2 fL (81-99); MONOCYTES # (AUTO) 1.1 (0.2-0.8); MONOCYTES % 5.5 % (4.4-11.3); NEUTROPHILS # (AUTO) 18.1 (2.1-6.9); NEUTROPHILS % 87.9 % (38.7-80.0); PLATELET COUNT 444 x10e3/uL (140-360); RED BLOOD COUNT 2.83 x10e6/uL (3.6-5.1); RED CELL DISTRIBUTION WIDTH 16.9 % (11.7-14.4)
[2020-05-27 06:57] LABS: CREATINE KINASE MB 0.7 ng/mL (0-5.0)
--- NOTE | 2020-05-27 07:21 | NUR ---
REPORT GIVEN TO DAYSHIFT NURSE. ALERT ORIENTED. RESTING IN BED. NO SIGNS IV INFILTRATION. BED LOCKED AND IN LOW POSITION. CALL LIGHT WITHIN REACH. BED ALARM ACTIVATED.
[2020-05-27 07:24] LABS: ALBUMIN 2.7 g/dL (3.5-5.0); ANION GAP 21.8 mmol/L (8-16); CALCIUM 8.7 mg/dL (8.4-10.2); CREATININE, SERUM 2.67 mg/dL (0.57-1.11); POTASSIUM 4.8 mmol/L (3.5-5.1)
--- NOTE | 2020-05-27 07:25 | NUR ---
PATIENT IN BED RESTING WITH NO S/S OF DISTRESS. IV FLUID INFUSING ORDERED. LEFT CHEST PORT A CATH WITH DRESSING INTACT. BED IN LOWER POSITION, CALL LIGHT AT REACH.
[2020-05-27] MEDS: PANTOPRAZOLE SOD 40 MG TABEC PO SCH (07:30)
[2020-05-27] MEDS: INSULIN REGULAR, HUMAN 100 UNIT/1 ML 3ML VIAL SQ SCH ×4 (07:30→21:00)
[2020-05-27] MEDS: MEROPENEM 500MG/ NS 50ML 50 ML IV SCH ×2 (08:00→20:00)
[2020-05-27] MEDS: METOPROLOL TARTRATE 50 MG TAB PO SCH ×2 (09:00→17:10)
[2020-05-27] MEDS: ALLOPURINOL 300 MG TAB PO SCH (09:00)
--- NOTE | 2020-05-27 11:15 | NUR ---
PATIENT REPOSITIONED IN BED BY 2 STAFFS. ALL PERSONAL ITEMS CLOSE TO PATIENT. BED IN LOWER POSITION, CALL LIGHT AT REACH.
[2020-05-27] MEDS: HYDROCODONE/APAP 10MG-325MG TAB PO PRN (11:50)
[2020-05-27 15:13] LABS: CREATINE KINASE MB 0.8 ng/mL (0-5.0)
--- NOTE | 2020-05-27 15:46 | NUR ---
PATIENT ASSISTED WITH DIAPER CHANGE, HAD A BM. REPOSITIONED IN BED. PATIENT REFUSED TO BE TURN ON HER RIGHT. SHE SAID THAT SHE CAN ONLY STAY ON THE LEFT SIDE OR THE BACK. ALL PERSONAL ITEMS CLOSE TO PATIENT, CALL LIGHT AT REACH.
--- NOTE | 2020-05-27 20:00 | NUR ---
INITIAL ASSESSMENT COMPLETE, PT IN BED, EDEMA PITTING ON LOWER EXTREMITIES AND TRUNK, BRUISING TO LEFT HIP AREA AND RIGHT ELBOW, TELE ON PT, IV INFUSING, CALL LIGHT IN REACH
[2020-05-28] VITALS (8 sets, daily range): BP systolic 118–154; BP diastolic 75–84
--- NOTE | 2020-05-28 | NUR ---
DIAPER AND SHEETS CHANGED, CALL LIGHT IN REACH, CONTINUE TO REPOSITION PT THROUGH OUT THE NIGHT
[2020-05-28] MEDS ORDERED: METHYLPREDNISOLONE SOD SUCC 125 MG/2ML VIAL IV ONE (05:30)
--- NOTE | 2020-05-28 05:59 | Progress Note ---
DATE: 05/28/2020 SUBJECTIVE: The patient states that she has onset of right lateral hip pain since she has been starting ambulating more. Otherwise has no other complaints. Her mental status appears to be at her baseline. OBJECTIVE: VITAL SIGNS: Temperature is 98.1, pulse 91, blood pressure 130/82, and sats 100% on room air. GENERAL: In no apparent distress, lying in bed. CARDIOVASCULAR: Regular rate and rhythm. LUNGS: Clear to auscultation bilaterally. ABDOMEN: Good. Bowel sounds. Soft and nontender. EXTREMITIES: No clubbing or cyanosis. There is also some tenderness over her right hip bursa on the lateral aspect. EXTREMITIES: No clubbing or cyanosis. NEUROLOGIC: The patient moves all extremities x4. ASSESSMENT AND PLAN: 1. Right hip bursa. We will start with some physical therapy to see if this helps. 2. Diabetes. Continue current care monitoring. 3. Chronic kidney disease stage 3, better with post IV fluids, so we will check a CMP. 4. Leukocytosis. We will check another CBC. 5. Anemia. We will check another CBC. 6. Stage IV melanoma. The patient is still unsure if she wants to proceed with treatment in the hospice. She is still discussing with her family. 7. Hypertension. Continue with the metoprolol. 8. Reflux disease. Continue with pantoprazole. 9. Gout. Continue with her allopurinol. Please see hospital chart for full details. MD CARRIE Velasco/EDWIGE /[id number]
--- NOTE | 2020-05-28 06:18 | NUR ---
PT AWAKE EASILY FOR LAB, NO DISTRESS NOTED, CALL LIGHT IN REACH
[2020-05-28 06:34] LABS: BASOPHILS # (AUTO) 0.1 (0.0-0.1); BASOPHILS % 0.4 % (0.0-1.0); EOSINOPHILS # (AUTO) 0.2 (0.0-0.4); EOSINOPHILS % 1.5 % (0.0-6.0); HEMATOCRIT 26.4 % (34.2-44.1); HEMOGLOBIN 7.9 g/dL (12.0-16.0); LYMPHOCYTES # (AUTO) 0.7 (1.0-3.2); LYMPHOCYTES % 4.1 % (18.0-39.1); MEAN CORPUSCULAR HEMOGLOBIN 26.7 pg (28-32); MEAN CORPUSCULAR HGB CONC 29.9 g/dL (31-35); MEAN CORPUSCULAR VOLUME 89.2 fL (81-99); MONOCYTES # (AUTO) 0.8 (0.2-0.8); NEUTROPHILS # (AUTO) 13.8 (2.1-6.9); NEUTROPHILS % 87.9 % (38.7-80.0); PLATELET COUNT 421 x10e3/uL (140-360); RED BLOOD COUNT 2.96 x10e6/uL (3.6-5.1); RED CELL DISTRIBUTION WIDTH 17.2 % (11.7-14.4)
[2020-05-28 07:00] LABS: ALBUMIN 2.6 g/dL (3.5-5.0); ANION GAP 17.8 mmol/L (8-16); CALCIUM 8.3 mg/dL (8.4-10.2); CREATININE, SERUM 2.2 mg/dL (0.57-1.11); POTASSIUM 4.8 mmol/L (3.5-5.1)
--- NOTE | 2020-05-28 07:12 | NUR ---
PATIENT IN BED RESTING WITH EYES CLOSED, NO DISTRESS NOTED. ALL PERSONAL ITEMS CLOSE TO PATIENT. BED IN LOWER POSITION, CALL LIGHT AT REACH.
[2020-05-28] MEDS: INSULIN REGULAR, HUMAN 100 UNIT/1 ML 3ML VIAL SQ SCH ×4 (07:30→21:00)
[2020-05-28] MEDS: SODIUM CHLORIDE 0.9% 1000ML 1,000 ML IV SCH ×2 (08:11→11:30)
[2020-05-28] MEDS: MEROPENEM 500MG/ NS 50ML 50 ML IV SCH ×2 (08:24→20:25)
[2020-05-28] MEDS: PANTOPRAZOLE SOD 40 MG TABEC PO SCH (08:24)
[2020-05-28] MEDS: ALLOPURINOL 300 MG TAB PO SCH (09:22)
[2020-05-28] MEDS: METOPROLOL TARTRATE 50 MG TAB PO SCH ×2 (09:22→17:07)
--- NOTE | 2020-05-28 11:02 | NUR ---
PATIENT ASSISTED WITH DIAPER CHANGE. REPOSITIONED IN BED. CALL LIGHT AT REACH.
[2020-05-28] MEDS: HYDROCODONE/APAP 10MG-325MG TAB PO PRN (11:50)
--- NOTE | 2020-05-28 15:29 | NUR ---
PATIENT EXERCISED IN BED WITH PHYSICAL THERAPY. REPOSITIONED IN BED WITH CALL LIGHT AT REACH.
--- NOTE | 2020-05-28 19:00 | NUR ---
Bed side report received, patient is legally blind and well noted in plan of care. safety and fall precaution maintained at this time: bed in lowest position and locked, needed items beside bed and call nielson close to patient and instructed with a successful return demonstration how to use call light for help. patient is close to nurses station for close monitoring and assistance. Blind sign on top of bed and door alert staff members about disability and need to be priority for assistance. patient is currently stable will continue to monitor.
[2020-05-29] VITALS (7 sets, daily range): BP systolic 122–144; BP diastolic 79–91
[2020-05-29] MEDS: SODIUM CHLORIDE 0.9% 1000ML 1,000 ML IV SCH ×3 (03:56→20:06)
--- NOTE | 2020-05-29 06:14 | Progress Note ---
DATE: 05/29/2020 SUBJECTIVE: The patient reports having still complains of right hip pain mostly in the lateral bursa area. It is unfortunate, not allowing her to ambulate very well. OBJECTIVE: VITAL SIGNS: Temperature 97.7, pulse 77, blood pressure 129/79, and sats 99%. GENERAL: No apparent distress, lying in bed. NECK: Supple. CARDIOVASCULAR: Regular rate and rhythm. LUNGS: Decreased breath sounds. ABDOMEN: Good bowel sounds. Soft, nontender. EXTREMITIES: No clubbing or cyanosis. Right hip is tender over the bursa area. NEUROLOGIC: Moves all extremities x4. She is alert and oriented x4. ASSESSMENT AND PLAN: 1. Right hip pain. We will check an x-ray. 2. Chronic kidney disease stage 4. We will check a CMP. 3. Anemia check a CBC. 4. Leukocytosis. Check CBC. 5. Stage IV melanoma. The patient is wanting to talk to hospice team just to see what they had to offer before make any type of commitments. 6. Gout. Continue with her allopurinol. 7. Hypertension, improved with metoprolol. 8. Diabetes. Continue current care and monitor. Please see hospital chart for details. MD CARRIE Velasco/EDWIGE /[id number]
--- NOTE | 2020-05-29 07:00 | NUR ---
Patient endorsed to next shift for continuity of care.
--- NOTE | 2020-05-29 07:22 | NUR ---
PATIENT IN BED RESTING WITH EYES CLOSED, NO DISTRESS NOTED. IV FLUID INFUSING ORDERED. ALL PERSONAL ITEMS CLOSE TO PATIENT. BED IN LOWER POSITION AND LOCKED, CALL LIGHT AT REACH.
[2020-05-29] MEDS: INSULIN REGULAR, HUMAN 100 UNIT/1 ML 3ML VIAL SQ SCH ×4 (07:30→20:06)
[2020-05-29] MEDS: PANTOPRAZOLE SOD 40 MG TABEC PO SCH (07:30)
[2020-05-29 07:31] LABS: BASOPHILS % 0.2 % (0.0-1.0); HEMATOCRIT 25.9 % (34.2-44.1); HEMOGLOBIN 7.5 g/dL (12.0-16.0); LYMPHOCYTES # (AUTO) 0.5 (1.0-3.2); LYMPHOCYTES % 4.7 % (18.0-39.1); MEAN CORPUSCULAR HEMOGLOBIN 25.5 pg (28-32); MEAN CORPUSCULAR VOLUME 88.1 fL (81-99); MONOCYTES # (AUTO) 0.3 (0.2-0.8); MONOCYTES % 2.5 % (4.4-11.3); NEUTROPHILS # (AUTO) 9.8 (2.1-6.9); NEUTROPHILS % 91.2 % (38.7-80.0); PLATELET COUNT 436 x10e3/uL (140-360); RED BLOOD COUNT 2.94 x10e6/uL (3.6-5.1); RED CELL DISTRIBUTION WIDTH 17.1 % (11.7-14.4)
[2020-05-29 07:49] LABS: ALBUMIN 2.6 g/dL (3.5-5.0); ANION GAP 17.8 mmol/L (8-16); CALCIUM 8.3 mg/dL (8.4-10.2); CREATININE, SERUM 1.96 mg/dL (0.57-1.11); MAGNESIUM 1.8 MG/DL (1.3-2.1); POTASSIUM 4.8 mmol/L (3.5-5.1)
--- NOTE | 2020-05-29 08:18 | NUR ---
PT IS FROM [facility], SHE IS SKILLED THERE. IF SHE GOES HOSPICE SHE LOOSES HER PAYER SOURCE FOR ROOM AND BOARD. WILL FOLLOW UP WITH FAMILY AND PATIENT TO SEE ABOUT SETTING UP EDUCATION FOR HOSPICE. IF RETURNS TO SNF WILL NEED A SKILLABLE NEED.
[2020-05-29] MEDS: MEROPENEM 500MG/ NS 50ML 50 ML IV SCH ×2 (08:53→20:06)
--- NOTE | 2020-05-29 08:57 | NUR ---
SPOKE WITH PT ABOUT THE DIFFERENT OPTIONS. SHE THINKS THE STATE PAYS FOR PART OF HER INSURANCE, WILL SEE IF SHE CAN QUALIFY FOR ANY PROVIDER SERVICES SHE GAVE PERMISSION TO HAVE EDUCATION FROM [facility] NURSE WITNESSED VERBAL CHOICE DUE TO PT BEING BLIND.
[2020-05-29 09:01] LABS: LYMPHOCYTES % (MANUAL) 8 % (19-48); NEUTROPHILS % (MANUAL) 92 % (40-74); NUCLEATED RED BLOOD CELLS 1; PLATELET ESTIMATE SLIGHTLY INCREASED
[2020-05-29 09:02] LABS: ANISOCYTOSIS SLIGHT; HYPOCHROMASIA SLIGHT; PLATELET MORPHOLOGY COMMENT NORMAL; POLYCHROMASIA FEW; RBC MORPHOLOGY COMMENT ABNORMAL
[2020-05-29] MEDS: ALLOPURINOL 300 MG TAB PO SCH (09:10)
[2020-05-29] MEDS: METOPROLOL TARTRATE 50 MG TAB PO SCH ×2 (09:10→17:20)
[2020-05-29] MEDS: HYDROCODONE/APAP 10MG-325MG TAB PO PRN ×3 (09:55→20:13)
--- NOTE | 2020-05-29 10:06 | Diagnostic Imaging Report ---
EXAMINATION: HIP RIGHT 2-3 VW (+/- PELVIS) INDICATION: Right hip pain COMPARISON: None FINDINGS: Cortical step-off at the right iliopectineal line and along the right lateral acetabular roof are concerning for right acetabular fracture. Degenerative changes of the right hip joint. Status post left total hip replacement. IMPRESSION: Findings concerning for right acetabular fracture. Signed by: Jeannie Cazares MD on 05/29/2020 10:03 AM
--- NOTE | 2020-05-29 10:12 | NUR ---
REP WILL COME TO BEDSIDE TO SPEAK WITH PT ABOUT EDUCATION OF SERVICES AT 11AM.
--- NOTE | 2020-05-29 11:29 | NUR ---
SPOKE WITH MD REGARDING RIGHT HIP X-RAY RESULT, NEW ORDER RECEIVED.
--- NOTE | 2020-05-29 14:15 | NUR ---
PATIENT OFF UNIT TO RADIOLOGY.
--- NOTE | 2020-05-29 14:38 | NUR ---
PATIENT BACK TO UNIT FROM RADIOLOGY.
--- NOTE | 2020-05-29 15:06 | Diagnostic Imaging Report ---
EXAM: CT Pelvis WITHOUT contrast INDICATION: Right hip fracture. Dehydration. Right hip pain. Weakness. Metastatic osseous disease. Metastatic melanoma COMPARISON: 02/29/2020 TECHNIQUE: Pelvis was scanned utilizing a multidetector helical scanner from the iliac crest to the pubic symphysis without administration of IV contrast. Coronal and sagittal reformations were obtained. Routine protocol was performed. IV CONTRAST: None. ORAL CONTRAST: Water RADIATION DOSE: Total DLP: 286 mGy*cm Estimated effective dose: (DLP x 0.015 x size factor) mSv. Dose modulation, iterative reconstruction and weight bases adjustment of the MA/KV was utilized to reduce the patient dose to as low as reasonably achievable COMPLICATIONS: None FINDINGS: LINES and TUBES: Patient status post left hip replacement with associated postsurgical change and metallic artifact. The surgical hardware is intact without evidence of failure or loosening. GI TRACT: No abnormal distention, wall thickening, or evidence of bowel obstruction. Scattered diverticulosis without evidence of diverticulitis. PELVIC ORGANS/BLADDER: Unremarkable. LYMPH NODES: No lymphadenopathy. VESSELS: Scattered vascular calcification. PERITONEUM / RETROPERITONEUM: No free air or fluid. BONES: Large destructive osseous metastasis involving the majority of the right iliac bone and right acetabulum with large soft tissue component. Cortical destruction along the posterior proximal shaft of the right femur seen on axial series 4 image 37 consistent with a metastatic lesion. SOFT TISSUES: 13.2 cm lobular soft tissue mass with regions of air foci and dense material centrally consistent with a metastatic deposit with possible internal hemorrhage. Alternatively, this could be due to a metastatic deposit involving the bowel and the dense material centrally could be retained contrast material. Numerous soft tissue subcutaneous nodules consistent with metastatic deposits. The largest is along the right lateral pelvis best seen on axial series 3 image 20. This measures 3.0 cm. Skin thickening and apparent skin ulceration along the posterior left hip and proximal left leg worrisome for cellulitis.. IMPRESSION: Large destructive osseous metastasis involving the majority of the right iliac bone and right acetabulum with large soft tissue component. Cortical destruction along the posterior proximal shaft of the right femur seen on axial series 4 image 37 consistent with a metastatic lesion. 13.2 cm lobular soft tissue mass with regions of air foci and dense material centrally consistent with a metastatic deposit with possible internal hemorrhage. Alternatively, this could be due to a metastatic deposit involving the bowel and the dense material centrally could be retained contrast material. Numerous soft tissue subcutaneous nodules consistent with metastatic deposits. The largest is along the right lateral pelvis best seen on axial series 3 image 20. This measures 3.0 cm. Skin thickening and apparent skin ulceration along the posterior left hip and proximal left leg worrisome for cellulitis.. Signed by: Dr. Arthur Stearns M.D. on 05/29/2020 3:02 PM
--- NOTE | 2020-05-29 20:11 | NUR ---
REFUSES TO BE TURNED/REPOSITIONED AT THIS TIME.
--- NOTE | 2020-05-29 21:34 | NUR ---
GAVE REPORT TO STAFF NURSE. PATIENT ALERT, ORIENTED AND RESTING IN BED. NO SIGNS IV INFILTRATION. BED LOCKED AND WITHIN REACH. ITEMS AND CALL LIGHT WITHIN REACH. BED ALARM ACTIVATED.
[2020-05-30] VITALS (8 sets, daily range): BP systolic 117–137; BP diastolic 73–85
[2020-05-30] MEDS: HYDROCODONE/APAP 10MG-325MG TAB PO PRN ×5 (00:11→20:15)
[2020-05-30] MEDS: SODIUM CHLORIDE 0.9% 1000ML 1,000 ML IV SCH ×3 (03:30→23:18)
[2020-05-30] MEDS: INSULIN REGULAR, HUMAN 100 UNIT/1 ML 3ML VIAL SQ SCH ×4 (07:30→20:01)
[2020-05-30] MEDS: MEROPENEM 500MG/ NS 50ML 50 ML IV SCH ×2 (09:36→20:01)
[2020-05-30] MEDS: ALLOPURINOL 300 MG TAB PO SCH (09:36)
[2020-05-30] MEDS: PANTOPRAZOLE SOD 40 MG TABEC PO SCH (09:36)
[2020-05-30] MEDS: METOPROLOL TARTRATE 50 MG TAB PO SCH ×2 (09:36→15:51)
--- NOTE | 2020-05-30 19:18 | NUR ---
walking rounds complete , report given to oncoming nurse.
--- NOTE | 2020-05-30 20:15 | NUR ---
Pt lying in bed resting quietly. Repositioned pt on her left side for comfort. [place] given as ordered for pain. No other needs at this time. Belongings and call light within reach. Will continue to monitor.
[2020-05-31] VITALS (8 sets, daily range): BP systolic 112–133; BP diastolic 69–86
[2020-05-31] MEDS: HYDROCODONE/APAP 10MG-325MG TAB PO PRN ×2 (05:48→22:46)
[2020-05-31 07:04] LABS: BASOPHILS % 0.2 % (0.0-1.0); EOSINOPHILS # (AUTO) 0.1 (0.0-0.4); HEMATOCRIT 24.8 % (34.2-44.1); HEMOGLOBIN 7.6 g/dL (12.0-16.0); LYMPHOCYTES # (AUTO) 0.7 (1.0-3.2); LYMPHOCYTES % 5.8 % (18.0-39.1); MEAN CORPUSCULAR HGB CONC 30.6 g/dL (31-35); MEAN CORPUSCULAR VOLUME 91.5 fL (81-99); MONOCYTES # (AUTO) 0.7 (0.2-0.8); MONOCYTES % 5.6 % (4.4-11.3); NEUTROPHILS % 86.4 % (38.7-80.0); PLATELET COUNT 428 x10e3/uL (140-360); RED BLOOD COUNT 2.71 x10e6/uL (3.6-5.1); RED CELL DISTRIBUTION WIDTH 17.9 % (11.7-14.4)
[2020-05-31] MEDS: FENTANYL 75MCG/HR PATCH TD SCH (07:09)
--- NOTE | 2020-05-31 07:26 | NUR ---
Report given to dayshift nurse. Pt resting quietly with eyes closed. Breathing regular and unlabored. No apparent needs at this time. Care transferred.
[2020-05-31] MEDS: INSULIN REGULAR, HUMAN 100 UNIT/1 ML 3ML VIAL SQ SCH ×4 (07:30→21:00)
[2020-05-31 07:38] LABS: ALBUMIN 2.4 g/dL (3.5-5.0); CALCIUM 8.3 mg/dL (8.4-10.2); CREATININE, SERUM 1.44 mg/dL (0.57-1.11)
[2020-05-31] MEDS: PANTOPRAZOLE SOD 40 MG TABEC PO SCH (08:34)
[2020-05-31] MEDS: ALLOPURINOL 300 MG TAB PO SCH (08:35)
[2020-05-31] MEDS: MEROPENEM 500MG/ NS 50ML 50 ML IV SCH ×2 (08:35→21:30)
[2020-05-31] MEDS: METOPROLOL TARTRATE 50 MG TAB PO SCH ×2 (08:37→16:00)
[2020-05-31] MEDS: SODIUM CHLORIDE 0.9% 1000ML 1,000 ML IV SCH ×2 (08:38→19:30)
--- NOTE | 2020-05-31 19:00 | NUR ---
Resumed care of patient. Patient resting quietly in bed, no s/s of distress at this time. Bed locked and in lowest position, side rails upx3, call light placed within reach. All safety measures in place.
[2020-06-01] VITALS (8 sets, daily range): BP systolic 105–131; BP diastolic 70–81
--- NOTE | 2020-06-01 05:55 | NUR ---
16Fr Wen inserted as ordered. 50 ml cloudy pale urine noted. Patient tolerated well.
[2020-06-01] MEDS: HYDROCODONE/APAP 10MG-325MG TAB PO PRN ×2 (06:03→12:41)
[2020-06-01] MEDS: INSULIN REGULAR, HUMAN 100 UNIT/1 ML 3ML VIAL SQ SCH ×4 (07:30→20:53)
[2020-06-01] MEDS: PANTOPRAZOLE SOD 40 MG TABEC PO SCH (08:30)
[2020-06-01] MEDS: MEROPENEM 500MG/ NS 50ML 50 ML IV SCH ×2 (09:00→20:28)
[2020-06-01] MEDS: METOPROLOL TARTRATE 50 MG TAB PO SCH ×2 (09:35→17:08)
[2020-06-01] MEDS: ALLOPURINOL 300 MG TAB PO SCH (09:35)
--- NOTE | 2020-06-01 12:25 | NUR ---
SPOKE WITH PT ABOUT UPDATE, GOT HOSPICE ON PHONE, HAS TO CONVERT [facility] TO FACILITY SO PT WILL BE PENDING SO NEED TO DO NEW APPLICATION, PLAN IS TO COMPLETE THE APPLICATION AND GO TO [facility]
--- NOTE | 2020-06-01 17:00 | NUR ---
Nutrition Intervention Note RD Recommendation(s) for Physician: - Continue current diet - Glucerna Shakes TID for adequacy - Recommend MVI with minerals once daily for adequacy Plan of Care: RD following, monitoring for tolerance and adequacy - ONS, snacks ordered Nutrition reason for involvement: LOS RD Assessment 06/01: 55 YOF admitted for dehydration, hyperkalemia, and leukocytosis with recent hx of stage IV melanoma. Pt seen today for LOS. Pt reports decreased appetite and po intake since discharge in February to a rehab facility. Noted pt with significant wt loss of 11% since February per prior admit wt of 195 lbs. Pt denies any GI distress or difficulties chewing or swallowing. Food allergies reviewed, allergies noted in chart and health touch- pt safe to self select. Pt receptive to Glucerna shakes- RD to order and snacks ordered per pt preference to promote po intake. All questions and concerns addressed at time of visit. Chart reviewed. Will continue to monitor. Principal Problems/Diagnoses: dehydration, hyperkalemia, leukocytosis PMH: DM, CKD IV, stage IV melanoma, gout, reflux, blindness GI: abd soft, non-tender Skin: intact Labs: 06/01: Na 138, K 5, BUN 57, Cr 1.44, Gluc 114, POC Gluc 131-156 Meds: norco, insulin, allopurinol, abx, protonix, zofran Ht: 60 in Wt: 173 lb BMI: 33.8 kg/m2 IBW: 100 lb Malnutrition Evaluation (06/01/20) The patient meets criteria for MODERATE protein-calorie malnutrition. Energy intake: <75% of estimated energy requirements for >1 month Weight loss: >7.5% in 3 months- 11% wt loss in 3 months Fat loss: none, ample skinfold thickness Muscle loss: moderate, shoulder square Supporting Evidence: Fluid accumulation: none Functional Status: none Nutrition Prescription (Diet Order): 1800 ADA Estimated Nutritional Needs: 1644-0074 calories/day (22-25 kcal/kg IBW) 68-91 g protein/day (1.5-2 g pro/kg IBW) Diet Adequacy: Not meeting calorie needs, Not meeting protein needs Diet Tolerance: Diet Education Needs Assessment: Diet education not indicated. Nutrition Care Level: moderate Nutrition Diagnosis: Inadequate energy and protein intake related to current medical conditions as evidenced by decreased po intake and significant wt loss. Goal: Patient will meet 75-100% of estimated needs by follow up Progress: N/A Interventions: -CHO modified diet, Commercial beverage, Multivitamin/mineral supplement therapy, Collaboration with other providers, snacks ordered Monitoring/Evaluation: - Total energy intake, Total protein intake, Modified diet, Liquid supplement, Weight change Signed: Becca Tran RD, LD, [facility]
[2020-06-02] VITALS (8 sets, daily range): BP systolic 101–118; BP diastolic 69–78
[2020-06-02] MEDS: HYDROCODONE/APAP 10MG-325MG TAB PO PRN ×2 (02:19→13:43)
[2020-06-02] MEDS ORDERED: FUROSEMIDE INJ 10 MG/ML 2 ML VIAL IV ONE (06:00)
--- NOTE | 2020-06-02 07:00 | NUR ---
ASSUMED CARE. AAOX3. ACYANOTIC. RESTING IN BED. NO DISTRESS NOTED. CALL LIGHT IN REACH. SIDE RAILS UP X2. BED LOW AND LOCKED.
[2020-06-02] MEDS: INSULIN REGULAR, HUMAN 100 UNIT/1 ML 3ML VIAL SQ SCH ×4 (07:30→20:31)
[2020-06-02] MEDS: PANTOPRAZOLE SOD 40 MG TABEC PO SCH (08:30)
[2020-06-02] MEDS: MEROPENEM 500MG/ NS 50ML 50 ML IV SCH ×2 (09:00→20:43)
[2020-06-02] MEDS: ALLOPURINOL 300 MG TAB PO SCH (09:49)
[2020-06-02] MEDS: METOPROLOL TARTRATE 50 MG TAB PO SCH ×2 (09:49→16:40)
--- NOTE | 2020-06-02 10:04 | NUR ---
SPOKE WITH FACILITY, THEY STATE DID NOT RECEIVE CLINICALS SENT YESTERDAY, REFAXED, COMPLETED RTF AND PASRR, ALSO HAD PT SIGN MEDICAID APPLICATION AND SENT TO FACILITY AND HOSPICE REP. WAS ABLE TO CONFIRM RECEIPT OF ALL THE ABOVE FAXES. PENDING ACCEPTANCE.
--- NOTE | 2020-06-02 10:05 | NUR ---
EDUCATED ABOUT IMM, SIGNED, FILED IN CHART, WITH COPY LEFT WITH FAMILY AT BEDSIDE.
--- NOTE | 2020-06-02 23:45 | NUR ---
RECEIVED REPORT FROM PREVIOUS NURSE. PATIENT IN BED. CALL LIGHT WITHIN REACH.
[2020-06-03 00:40] VITALS: BP 104/71
[2020-06-03] MEDS: HYDROCODONE/APAP 10MG-325MG TAB PO PRN (04:42)
[2020-06-03 05:28] VITALS: BP 102/67
--- NOTE | 2020-06-03 06:25 | NUR ---
TOPETE REMOVED AND PERINEAL CARE PERFORMED
[2020-06-03] MEDS: FENTANYL 75MCG/HR PATCH TD SCH (06:32)
--- NOTE | 2020-06-03 07:11 | NUR ---
GAVE BEDSIDE SHIFT REPORT TO ONCOMING NURSE. CALL LIGHT WITHIN REACH. PATIENT IN BED. HOURLY ROUNDING PERFORMED
[2020-06-03] MEDS: INSULIN REGULAR, HUMAN 100 UNIT/1 ML 3ML VIAL SQ SCH ×2 (07:30→11:30)
[2020-06-03 07:40] VITALS: BP 109/69
[2020-06-03] MEDS: METOPROLOL TARTRATE 50 MG TAB PO SCH (09:00)
[2020-06-03] MEDS: PANTOPRAZOLE SOD 40 MG TABEC PO SCH (09:03)
[2020-06-03] MEDS: ALLOPURINOL 300 MG TAB PO SCH (09:03)
[2020-06-03] MEDS: MEROPENEM 500MG/ NS 50ML 50 ML IV SCH (09:13)
[2020-06-03 10:14] VITALS: BP 109/69
[2020-06-03 11:51] VITALS: BP 136/73
--- NOTE | 2020-06-03 14:31 | NUR ---
HOSPICE AT NURSING FACILITY DISCHARGE INFORMATION PATIENT HAS BEEN ACCEPTED TO: NAME: [facility] AD[address]ESS: [id number] ACCEPTING RADIO PERFORMER: MIGDALIA MARTE ACCEPTING MD:ESVIN ROOM: [id number] NURSE CALL REPORT TO: [phone] IMM SIGNED AND OBTAINED (if applicable): IMM THE FOLLOWING DOCUMENTS MUST ACCOMPANY PATIENT FOR TRANSFER: COPIED CHART: PACKET
--- NOTE | 2020-06-03 14:41 | NUR ---
OOH DNR ON CHART PT WILL BE PICKED UP VIA AMBULANCE SET UP BY HOSPICE APPROXIMATELY 430 PM/ CONTACT FOR HOSPICE IS BEKAH [phone]
[2020-06-03 15:54] VITALS: BP 106/47
--- NOTE | 2020-06-06 08:38 | Discharge Summary ---
DISCHARGE DIAGNOSES: 1. Sepsis. 2. Dehydration. 3. Stage IV melanoma. 4. Chronic kidney disease, stage 4. 5. Diabetes. 6. Hypertension. HISTORY OF PRESENT ILLNESS AND HOSPITAL COURSE: The patient is an unfortunate lady, who has recent worsening of her stage IV melanoma, where she has had significant weight loss, dehydration, and sepsis, where she was also noted to have a lot right hip pain, where she was noticed to have a metastatic pathological fracture of her right hip, where she was seen by Ortho, where it is inoperable, and unfortunately is going to be nonweightbearing. Her dehydration improved. Sepsis improved by IV antibiotics, IV fluids, but I did have a long talk with the patient that due to her stage IV melanoma and significant advancement over the last few months that the patient could like to try to do treatment through her oncologist, but he feels like she would be better served under hospice, and I had a long discussion with the patient who then talked there with her family and they agree to do inpatient hospice, so once the patient was approved for inpatient hospice, she was transferred there, please see hospital chart for full details. MD CARRIE Velasco/EDWIGE /[phone]
== END 2020-06-03 16:55 | disposition hospice, inpatient (51) | DRG 872 ==
LOC: ER 19:25 → ERHOLD 23:27 → MED/SURG3 23:29
PROVIDERS: ADMIT Internal Medicine; ATTEND Internal Medicine
DX: A41.9 Sepsis, unspecified organism (principal); N18.4 Chronic kidney disease, stage 4 (severe); M84.559A Pathological fracture in neoplastic disease, hip, unspecified, initial encounter for fracture; C79.51 Secondary malignant neoplasm of bone; E44.0 Moderate protein-calorie malnutrition; C43.9 Malignant melanoma of skin, unspecified; E86.0 Dehydration; E11.22 Type 2 diabetes mellitus with diabetic chronic kidney disease; I12.9 Hypertensive chronic kidney disease with stage 1 through stage 4 chronic kidney disease, or unspecified chronic kidney disease; E03.9 Hypothyroidism, unspecified; F41.9 Anxiety disorder, unspecified; H54.7 Unspecified visual loss; M10.9 Gout, unspecified; Z90.49 Acquired absence of other specified parts of digestive tract; Z96.642 Presence of left artificial hip joint; Z83.3 Family history of diabetes mellitus; Z82.49 Family history of ischemic heart disease and other diseases of the circulatory system; Z91.041 Radiographic dye allergy status; Z91.013 Allergy to seafood; Z91.018 Allergy to other foods; Z91.048 Other nonmedicinal substance allergy status; N28.9 Disorder of kidney and ureter, unspecified; E87.5 Hyperkalemia; K21.9 Gastro-esophageal reflux disease without esophagitis; E66.9 Obesity, unspecified; Z68.34 Body mass index [BMI] 34.0-34.9, adult; D64.9 Anemia, unspecified; Z11.59 Encounter for screening for other viral diseases; Z79.84 Long term (current) use of oral hypoglycemic drugs; Z68.33 Body mass index [BMI] 33.0-33.9, adult
CPT/HCPCS: 36415; 71045; 71250; 72192; 80053; 81001; 82550; 82553; 82948; 83605; 83735; 84484; 85025; 87040; 87071; 87086; 87205; 93005; 97139; 99251; 99284; J1817; J1940; J2185; J2930; J7030